=== PATIENT | male | born 1945 | race Caucasian/White ===

== ENCOUNTER → 2017-10-22 12:18 | Outpatient (CLI) | payer OTHER, SELFPAY ==
[2017-10-22 13:19] LABS: Hemoglobin A1C% w Est Avg Glu 7.3 % (4.0-6.0)
[2017-10-22 13:27] LABS: Blood Urea Nitrogen 22 mg/dL (9-20); Calcium 9.3 mg/dL (8.4-10.2); Carbon Dioxide 25 mmol/L (22-32); Chloride 104 mmol/L (98-107); Estimated Glomerular Filt Rate > 60.0 mL/min (>60); Glucose 90 mg/dL (80-110); HEMOLYSIS 31 (0-50); Potassium 4.2 mmol/L (3.4-5.1); Sodium 142 mmol/L (137-145)
[2017-10-22 15:52] LABS: Creatinine Urine Random 100.8 mg/dL
[2017-10-22 15:54] LABS: Microalbumi Creatinin Ratio Ur 9.9 ug/mg CR (<30)
== END ==
PROVIDERS: PCP Family Medicine; Visit Provider Family Medicine
DX: E11.9 Type 2 diabetes mellitus without complications (principal)
CPT/HCPCS: 36415; 80048; 82043; 82570; 83036

== ENCOUNTER → 2018-02-28 13:34 | Outpatient (CLI) | payer OTHER, SELFPAY ==
[2018-02-28 14:06] LABS: Hemoglobin A1C% w Est Avg Glu 7.2 % (4.0-6.0)
[2018-02-28 14:22] LABS: Alanine Aminotransferase 44 IU/L (21-72); Albumin 4.1 g/dL (3.5-5.0); Albumin Globulin Ratio 1.6 (1.0-2.8); Alkaline Phosphatase 50 U/L (38-126); Aspartate Aminotransferase 30 IU/L (17-59); BUN Creatinine Ratio 18.3 (6-22); Bilirubin Total 0.6 mg/dL (0.2-1.3); Blood Urea Nitrogen 22 mg/dL (9-20); Calcium 9.2 mg/dL (8.4-10.2); Carbon Dioxide 24 mmol/L (22-32); Chloride 104 mmol/L (98-107); Estimated Glomerular Filt Rate 59.2 mL/min (>60); Globulin 2.6 g/dL (1.7-4.1); Glucose 161 mg/dL (80-110); HEMOLYSIS < 15 (0-50); Potassium 4.5 mmol/L (3.4-5.1); Sodium 141 mmol/L (137-145); Total Protein 6.7 g/dL (6.3-8.2)
== END ==
PROVIDERS: PCP Family Medicine; Visit Provider Family Medicine
DX: E11.9 Type 2 diabetes mellitus without complications (principal); Z79.4 Long term (current) use of insulin; I10 Essential (primary) hypertension
CPT/HCPCS: 36415; 80053; 83036

== ENCOUNTER → 2018-07-31 08:05 | Outpatient (CLI) | payer OTHER, SELFPAY ==
--- NOTE | 2018-07-31 | DI.US.S_ITS ---
PROCEDURE: US CAROTID DOPPLER BI INDICATIONS: OPTIC ATROPHY TECHNIQUE: Color and pulse Doppler interrogation was performed of both carotid systems, with image documentation and velocity measurements. COMPARISON: None. FINDINGS: Stenosis calculations are based on SRU (Society of Radiologists in Ultrasound) criteria. Right side: Brachial blood pressure: 148/82 mm Hg. Common carotid artery peak systolic velocity: 106 cm/sec. Internal carotid artery peak systolic velocity: 46 cm/sec. Internal carotid artery end diastolic velocity: 8 cm/sec. External carotid artery peak systolic velocity: 99 cm/sec. ICA/CCA peak systolic ratio: 0.43. Rosenberg scale imaging description: Scattered mild calcified plaque in the proximal internal carotid artery Percent internal carotid artery stenosis: Less than 50% Vertebral artery: Flow direction is antegrade. Left side: Brachial blood pressure: 142/82 mm Hg. Common carotid artery peak systolic velocity: 125 cm/sec. Internal carotid artery peak systolic velocity: 57 cm/sec. Internal carotid artery end diastolic velocity: 19 cm/sec. External carotid artery peak systolic velocity: 94 cm/sec. ICA/CCA peak systolic ratio: 0.46. Rosenberg scale imaging description: Mild calcified plaque in the internal carotid Percent internal carotid artery stenosis: Less than 50%. Vertebral artery: Flow direction is antegrade. IMPRESSION: Less than 50% stenosis in both proximal internal carotid arteries. Dictated by: John Hernandez M.D. on 07/31/2018 at 8:53 Approved by: John Hernandez M.D. on 07/31/2018 at 9:01
== END ==
PROVIDERS: PCP Family Medicine; Visit Provider Ophthalmology
DX: H47.20 Unspecified optic atrophy (principal); I65.23 Occlusion and stenosis of bilateral carotid arteries
CPT/HCPCS: 93880

== ENCOUNTER 2018-10-18 13:47 | Emergency (ER) | payer OTHER, SELFPAY ==
[2018-10-18 13:54] VITALS: BP 147/81; PULSE 70; RESP 14; TEMP 36.6; O2SAT 97; BMI 35.6
--- NOTE | 2018-10-18 14:28 | DI.US.S_ITS ---
PROCEDURE: US SCROTUM INDICATIONS: RIGHT SCROTAL MASS; PAIN TECHNIQUE: Real-time scanning was performed of the scrotum and testicles, with image documentation. Color and pulse Doppler interrogation was performed of both testicles. COMPARISON: None. FINDINGS: Right: Testicle is normal in size at 3.7 x 2.1 x 2.9 cm, and homogenous in echotexture. Epididymis is prominent in size measuring 12 mm and demonstrates prominent vascularity. No hydrocele or varicoceles. Overlying scrotal skin is normal in thickness. Left: Testicle is normal in size at 4.2 x 1.8 x 3.0 cm, and homogeneous in echotexture. Epididymis is normal in overall size and morphology. No hydrocele or varicoceles. Overlying scrotal skin is normal in thickness. Doppler: Color and pulse Doppler demonstrate normal and symmetric arterial flow in both testicles. IMPRESSION: Right epididymitis. Dictated by: Rolanda Barrera M.D. on 10/18/2018 at 14:47 Approved by: Rolanda Barrera M.D. on 10/18/2018 at 14:48
--- NOTE | 2018-10-18 14:33 | ED.MALEGU ---
HPI - Male Genitourinary <Windy Del AngelJÚNIOR - Last Filed: 10/18/18 21:26> General Chief complaint: Urogenital-Male Stated complaint: enlarged and painful right testicle Time Seen by Provider: 10/18/18 14:01 Source: patient Mode of arrival: ambulatory Limitations: no limitations History of Present Illness HPI Narrative: 73-year-old male with a history of diabetes, presents emergency department today complaining of right testicle pain, redness, and swelling for the past 2 days, also states that he feels a mass. States that in 1966 he had a piece of sharp metal penetrated his penis and required surgical removal. Patient denies fevers, chills, dysuria, abdominal pain, nausea, vomiting, change in bowel or bladder movements, denies penile discharge, chest pain, or shortness of breath. Denies any new sex partners, states he has been with his for 50 years. MD Complaint: testicle pain and testicle swelling Onset (ago): hour(s) Duration: constant Location: right testicle Radiation: right testicle Severity: moderate Severity scale (1-10): 3 Quality: aching Relieving factors: rest Exacerbating factors: movement Reports swelling and mass Related Data Sexually active: Yes Home Medications Medication Instructions Recorded Confirmed aspirin 81 mg PO QDAY #0 01/23/17 02/14/18 Previous Rx's Medication Instructions Recorded Glucose: Home Monitor ea NA Q DAY #1 01/28/17 insulin glargine (U- 100) 100 40 unit SUBCUT QAM #10 ml 09/18/17 unit/mL subcutaneous solution enalapril maleate 20 mg tablet 20 mg PO QDAY #90 tab 10/28/17 insulin glargine (U- 100) 100 See Rx Instructions SUBCUT DAILY 10/28/17 unit/mL subcutaneous solution #40 ml glimepiride 4 mg tablet 4 mg PO BID #180 tab 12/11/17 nystatin 100,000 unit/gram topical 1 applictn TOP BID #15 gram 02/14/18 cream Test Strips - Freestyle str #200 03/06/18 clindamycin HCl 150 mg capsule 150 mg PO TID #21 cap 03/07/18 clindamycin HCl 300 mg capsule 300 mg PO TID #21 cap 03/07/18 blood sugar diagnostic strips #100 each 04/28/18 Syringes: 1cc Insulin Syringes syr SQ QAM #90 06/06/18 with Doss simvastatin 40 mg tablet 40 mg PO HS #30 tab 06/09/18 Lancets 0netouch 33g #100 each 06/25/18 mupirocin 2 % topical ointment 1 applictn TOP TID #30 gram 07/15/18 amlodipine 5 mg tablet 5 mg PO DAILY #90 tab 09/01/18 levofloxacin 500 mg PO DAILY 10 Days #10 tab 10/18/18 Allergies Allergy/AdvReac Type Severity Reaction Status Date / Time hops [HOPS] Allergy Mild gi upset Verified 10/18/18 13:59 grapes Allergy Mild gi upset Uncoded 03/04/18 13:42 Review of Systems <JÚNIOR Santana - Last Filed: 10/18/18 21:26> Review of Systems 0REVIEW OF SYSTEMS: GENERAL: Denies fever or chills. HENT: No head trauma, hearing loss or sore throat. EYES: No loss of vision, double vision, eye pain, or irritation. CARDIOVASCULAR: No chest pain or syncope. RESPIRATORY: Denies shortness of breath. GASTROINTESTINAL: Denies abdominal pain or nausea. GENITOURINARY: Complains of right testicle pain and swollen testicle, see HPI. MUSCULOSKELETAL: No pain, weakness, or deformities. INTEGUMENTARY: No rash, lesions, or pruritus. NEURO: No numbness, tingling, memory loss, or confusion. PSYCH: No behavior or mood changes. PFSH <JÚNIOR Santana - Last Filed: 10/18/18 21:26> Medical History Diabetes mellitus (Chronic) Sleep apnea (Chronic) Tinnitus (Chronic) Colon polyps (Resolved) Measles (Resolved) Mumps (Resolved) Surgical History Anesthesia (Resolved) Status post colonoscopy (Resolved) Social History marital status: household members: spouse pets and animals: Yes education level: college leisure activities: reading seatbelt use: always helmet use: Yes water heater temp set < 120 deg: Yes working smoke detector in home: Yes fire extinguisher in home: Yes carbon monox detector in home: Yes firearms in home: No Smoking Status: Former smoker alcohol intake: current during the past year weight has: remained stable well-balanced diet: daily or most days daily servings fruits/ve-4 caffeine: Yes eating out: 1-3 times/week Type(s) of exercise: walking and bicycling frequency: 3-4 times per week duration: 30-45 minutes/day Social History marital status: household members: spouse pets and animals: Yes education level: college leisure activities: reading seatbelt use: always helmet use: Yes water heater temp set < 120 deg: Yes working smoke detector in home: Yes fire extinguisher in home: Yes carbon monox detector in home: Yes firearms in home: No Smoking Status: Former smoker alcohol intake: current during the past year weight has: remained stable well-balanced diet: daily or most days daily servings fruits/ve-4 caffeine: Yes eating out: 1-3 times/week Type(s) of exercise: walking and bicycling frequency: 3-4 times per week duration: 30-45 minutes/day Exam <JÚNIOR Santana - Last Filed: 10/18/18 21:26> Initial Vital Signs Initial Vital Signs: Vital Signs Temperature 97.8 F 10/18/18 13:54 Pulse Rate 70 10/18/18 13:54 Respiratory Rate 14 10/18/18 13:54 Blood Pressure 147/81 H 10/18/18 13:54 Pulse Oximetry 97 10/18/18 13:54 PHYSICAL EXAMINATION: GENERAL: Well groomed, alert, and cooperative Answers questions promptly and appropriately. Vital signs noted. HENT: Normocephalic, atraumatic. EYES: Conjunctiva pink, sclera white, no periorbital swelling. CARDIOVASCULAR: S1 and S2 sounds normal. Regular rate and rhythm, no murmurs, clicks, or bruits. No pedal edema. RESPIRATORY: Normal respiratory rate, trachea midline, airway patent. No stridor, nasal flaring or accessory muscle use. Lungs are clear in all mireles without wheeze, rhonchi, or crackles. GASTROINTESTINAL: Bowel sounds normoactive. Abdomen is soft and non-tender. No organomegaly. GENITALURINARY: Penis circumcised, no discharge. Right testicle is slightly erythematous and an increased tenderness when compared to the left testicle. Right epididymis was slightly increased in size from the left. MUSCULOSKELETAL:Equal tone and mass bilaterally. EXTREMITIES: Moves all extremities. SKIN: Warm, dry, soft, appropriate color for ethnicity. NEURO: Alert and Oriented X 3. Good coordination. No ataxia, or sensory deficits, or cognitive issues. PSYCH: Appropriate affect and mood. <Kary Suh DO - Last Filed: 10/19/18 21:32> Initial Vital Signs Initial Vital Signs: Vital Signs Temperature 97.8 F 10/18/18 13:54 Pulse Rate 70 10/18/18 13:54 Respiratory Rate 14 10/18/18 13:54 Blood Pressure 147/81 H 10/18/18 13:54 Pulse Oximetry 97 10/18/18 13:54 Course <JÚNIOR Santana - Last Filed: 10/18/18 21:26> Orders Ordered: ED Orders 10/18/18 14:28 US scrotum Stat 10/18/18 14:30 Urine Chlamydia Gonorrhea PCR Stat 10/18/18 14:45 B Type Natriuretic Peptide Stat Complete Blood Count AUTO DIFF Stat Comprehensive Metabolic Panel Stat Consultations Consultation #1: Patient staffed with Dr. Suh Vital Signs - 8 hr 10/18/18 13:54 10/18/18 16:28 Temperature 97.8 F Pulse Rate 70 71 Respiratory Rate 14 15 Blood Pressure 147/81 H Blood Pressure [Right Arm] 144/79 H Pulse Oximetry 97 100 <DO Kan Wade Last Filed: 10/19/18 21:32> Orders Ordered: ED Orders 10/18/18 14:28 US scrotum Stat 10/18/18 14:30 Urine Chlamydia Gonorrhea PCR Stat 10/18/18 14:45 B Type Natriuretic Peptide Stat Complete Blood Count AUTO DIFF Stat Comprehensive Metabolic Panel Stat Vital Signs - 8 hr 10/18/18 13:54 10/18/18 16:28 Temperature 97.8 F Pulse Rate 70 71 Respiratory Rate 14 15 Blood Pressure 147/81 H Blood Pressure [Right Arm] 144/79 H Pulse Oximetry 97 100 MDM - Male Genitourinary <JÚNIOR Santana - Last Filed: 10/18/18 21:26> Medical Records Attestation: I reviewed the patient's medical records. Lab Data Attestation: I reviewed the patient's lab results. Result diagrams: 10/18/18 14:45 10/18/18 14:45 Lab Results 10/18/18 10/18/18 10/18/18 Range/Units 14:30 14:45 14:45 WBC 10.3 (4.5-11.0) X10^3/uL RBC 5.43 (4.5-5.9) X10^6/uL Hgb 15.6 (13.5-17.5) g/dL Hct 46.3 (41-53) % MCV 85.3 (80-100) fL MCH 28.7 (26-34) PG MCHC 33.6 (30-36) % RDW 13.7 (11.6-14.8) % Plt Count 249 (150-400) X10^3/uL Neut % (Auto) 69.4 (50-75) % Lymph % (Auto) 18.5 L (25-40) % Aurora % (Auto) 10.0 (3-14) % Eos % (Auto) 1.6 L (2-4) % Baso % (Auto) 0.5 (0-2) % Neut # (Auto) 7200 H (3988-2296) /uL Lymph # (Auto) 1900 (3927-0213) /uL Aurora # (Auto) 1000 H (0-900) /uL Eos # (Auto) 200 (0-450) /uL Baso # (Auto) 100 (0-100) /uL Sodium 139 (137-145) mmol/L Potassium 4.2 (3.4-5.1) mmol/L Chloride 103 (98-107) mmol/L Carbon Dioxide 28 (22-32) mmol/L BUN 21 H (9-20) mg/dL Creatinine 0.90 (0.66-1.25) mg/dL Estimated GFR > 60.0 (>60) mL/min BUN/Creatinine Ratio 23.3 H (6-22) Glucose 162 H (80-110) mg/dL Calcium 9.3 (8.4-10.2) mg/dL Total Bilirubin 0.6 (0.2-1.3) mg/dL AST 28 (17-59) IU/L ALT 33 (21-72) IU/L Alkaline Phosphatase 61 (38-126) U/L B-Natriuretic Peptide < 100 (<100) Total Protein 7.4 (6.3-8.2) g/dL Albumin 4.1 (3.5-5.0) g/dL Globulin 3.3 (1.7-4.1) g/dL Albumin/Globulin Ratio 1.2 (1.0-2.8) Ur Chlamydia DNA (PCR) Not detected N gonorrhoeae DNA (PCR) Not detected Urine Dip Bedside Urine Glucose Negative Bedside Urine Bilirubin - Negative Bedside Urine Ketone - Negative Urine Specific [place] 1.015 Bedside Urine Occult Blood - Negative Bedside Urine pH 5.5 Bedside Urine Protein - Negative Bedside Urine Urobilinogen - Negative Bedside Urine Nitrite - Negative Bedside Urine Leukocytes - Negative Esterase Imaging Data Scrotum US: Radiologist's impression: [address] [address] Ultrasound Report Signed Patient: Alisha Tillman [facility]#: [id number] : 4Acct:[id number] Age/Sex: 73 / MDate of Service: 10/18/18 Loc: ED Accession Number: [id number] Procedure: US scrotum Ordering Provider: Windy Del Angel PROCEDURE: US SCROTUM INDICATIONS: RIGHT SCROTAL MASS; PAIN TECHNIQUE: Real-time scanning was performed of the scrotum and testicles, with image documentation. Color and pulse Doppler interrogation was performed of both testicles. COMPARISON: None. FINDINGS: Right: Testicle is normal in size at 3.7 x 2.1 x 2.9 cm, and homogenous in echotexture. Epididymis is prominent in size measuring 12 mm and demonstrates prominent vascularity. No hydrocele or varicoceles. Overlying scrotal skin is normal in thickness. Left: Testicle is normal in size at 4.2 x 1.8 x 3.0 cm, and homogeneous in echotexture. Epididymis is normal in overall size and morphology. No hydrocele or varicoceles. Overlying scrotal skin is normal in thickness. Doppler: Color and pulse Doppler demonstrate normal and symmetric arterial flow in both testicles. IMPRESSION: Right epididymitis. Dictated by: Rolanda Barrera M.D. on 10/18/2018 at 14:47 Approved by: Rolanda Barrera M.D. on 10/18/2018 at 14:48 MDM Narrative Medical decision making narrative: I suspect his symptoms are caused by epididymitis, most likely bacterial in nature (swelling and redness on exam, sudden onset, appearance of epididymitis on ultrasound, history of diabetes and which makes him more susceptible to infection). Low suspicion for Maritza's gangrene (lack of systemic symptoms, lack of blackening tissue, slow spread of illness over 1-2 days) or torsion (lack of intense pain, normal visualization by ultrasound), or STIs as patient states he has been with his for the past 50 years and only his . Strict return precautions discussed and follow-up instructions given to patient. <Kary Suh, - Last Filed: 10/19/18 21:32> Lab Data Lab Results 10/18/18 10/18/18 10/18/18 Range/Units 14:30 14:45 14:45 WBC 10.3 (4.5-11.0) X10^3/uL RBC 5.43 (4.5-5.9) X10^6/uL Hgb 15.6 (13.5-17.5) g/dL Hct 46.3 (41-53) % MCV 85.3 (80-100) fL MCH 28.7 (26-34) PG MCHC 33.6 (30-36) % RDW 13.7 (11.6-14.8) % Plt Count 249 (150-400) X10^3/uL Neut % (Auto) 69.4 (50-75) % Lymph % (Auto) 18.5 L (25-40) % Aurora % (Auto) 10.0 (3-14) % Eos % (Auto) 1.6 L (2-4) % Baso % (Auto) 0.5 (0-2) % Neut # (Auto) 7200 H (7098-5693) /uL Lymph # (Auto) 1900 (4629-8299) /uL Aurora # (Auto) 1000 H (0-900) /uL Eos # (Auto) 200 (0-450) /uL Baso # (Auto) 100 (0-100) /uL Sodium 139 (137-145) mmol/L Potassium 4.2 (3.4-5.1) mmol/L Chloride 103 (98-107) mmol/L Carbon Dioxide 28 (22-32) mmol/L BUN 21 H (9-20) mg/dL Creatinine 0.90 (0.66-1.25) mg/dL Estimated GFR > 60.0 (>60) mL/min BUN/Creatinine Ratio 23.3 H (6-22) Glucose 162 H (80-110) mg/dL Calcium 9.3 (8.4-10.2) mg/dL Total Bilirubin 0.6 (0.2-1.3) mg/dL AST 28 (17-59) IU/L ALT 33 (21-72) IU/L Alkaline Phosphatase 61 (38-126) U/L B-Natriuretic Peptide < 100 (<100) Total Protein 7.4 (6.3-8.2) g/dL Albumin 4.1 (3.5-5.0) g/dL Globulin 3.3 (1.7-4.1) g/dL Albumin/Globulin Ratio 1.2 (1.0-2.8) Ur Chlamydia DNA (PCR) Not detected N gonorrhoeae DNA (PCR) Not detected Urine Dip Bedside Urine Glucose Negative Bedside Urine Bilirubin - Negative Bedside Urine Ketone - Negative Urine Specific [place] 1.015 Bedside Urine Occult Blood - Negative Bedside Urine pH 5.5 Bedside Urine Protein - Negative Bedside Urine Urobilinogen - Negative Bedside Urine Nitrite - Negative Bedside Urine Leukocytes - Negative Esterase Discharge Plan Departure Patient Disposition: Home Clinical Impression: Epididymitis Discharge Date/Time: 10/18/18 16:31 Interventions: ED Discharge Assessment Last Done: 10/18/18 16:31 Instructions: DI for Epididymitis Activity Restrictions/Additional Instructions: Thank you for entrusting me with your care today. As discussed, it is likely that your symptoms are caused by epididymitis. I prescribed you antibiotics you should start to feel better in 24-48 hours. Please follow up with her primary care provider in the next week. Return emergency department if he develops fever, chills, uncontrolled vomiting, increasing severe abdominal pain, increased testicular swelling, increased redness or inability urinate. Prescriptions: New levofloxacin 500 mg tablet 500 mg PO DAILY 10 Days Qty: 10 RF: 0 No Action aspirin 81 MG tablet,chewable 81 mg PO QDAY Qty: 0 RF: 0 Glucose: Home Monitor NA Q DAY Qty: 1 RF: 0 insulin glargine [Lantus U-100 Insulin] 100 unit/mL solution 40 unit SUBCUT QAM Qty: 10 RF: 1 enalapril maleate 20 mg tablet 20 mg PO QDAY Qty: 90 RF: 3 insulin glargine [Lantus U-100 Insulin] 100 unit/mL solution See Rx Instructions SUBCUT DAILY Qty: 40 RF: 3 glimepiride [Amaryl] 4 mg tablet 4 mg PO BID Qty: 180 RF: 0 Test Strips - Freestyle Qty: 200 RF: 0 clindamycin HCl 300 mg capsule 300 mg PO TID Qty: 21 RF: 0 clindamycin HCl 150 mg capsule 150 mg PO TID Qty: 21 RF: 0 blood sugar diagnostic [OneTouch Ultra Blue Test Strip] strip .ROUTE .MEDSUPPLY Qty: 100 RF: 12 Syringes: 1cc Insulin Syringes with Doss SQ QAM Qty: 90 RF: 3 simvastatin 40 mg tablet 40 mg PO HS Qty: 30 RF: 1 Lancets 0netouch 33g .Route .MEDSUPPLY Qty: 100 RF: 3 mupirocin 2 % ointment 1 applictn TOP TID Qty: 30 RF: 0 amlodipine 5 mg tablet 5 mg PO DAILY Qty: 90 RF: 2 nystatin 100,000 unit/gram cream 1 applictn TOP BID Qty: 15 RF: 2 Referrals: Allie Mckeon MD [Primary Care Provider] - <Kary Suh DO - Last Filed: 10/19/18 21:32> Cosign ED Attending Cosignature Attestation: I was immediately available in the department for consultation. Documentation has been reviewed. I agree with assessment and plan.
[2018-10-18 14:56] LABS: Add Manual Diff / Slide Review NO; Basophils Absolute Auto 100 /uL (0-100); Basophils Percent Auto 0.5 % (0-2); Eosinophils Absolute Auto 200 /uL (0-450); Eosinophils Percent Auto 1.6 % (2-4); Hematocrit 46.3 % (41-53); Hemoglobin 15.6 g/dL (13.5-17.5); Lymphocytes Absolute Auto 1900 /uL (1100-4500); Lymphocytes Percent Auto 18.5 % (25-40); Mean Corpuscular HGB Conc 33.6 % (30-36); Mean Corpuscular Hemoglobin 28.7 PG (26-34); Mean Corpuscular Volume 85.3 fL (80-100); Monocytes Absolute Auto 1000 /uL (0-900); Neutrophils Absolute Auto 7200 /uL (1500-7000); Neutrophils Percent Auto 69.4 % (50-75); Platelet Count 249 X10^3/uL (150-400); Red Blood Cell Count 5.43 X10^6/uL (4.5-5.9); Red Cell Distribution Width 13.7 % (11.6-14.8); White Blood Cell Count 10.3 X10^3/uL (4.5-11.0)
[2018-10-18 15:07] LABS: Alanine Aminotransferase 33 IU/L (21-72); Albumin 4.1 g/dL (3.5-5.0); Albumin Globulin Ratio 1.2 (1.0-2.8); Alkaline Phosphatase 61 U/L (38-126); Aspartate Aminotransferase 28 IU/L (17-59); BUN Creatinine Ratio 23.3 (6-22); Bilirubin Total 0.6 mg/dL (0.2-1.3); Blood Urea Nitrogen 21 mg/dL (9-20); Calcium 9.3 mg/dL (8.4-10.2); Carbon Dioxide 28 mmol/L (22-32); Chloride 103 mmol/L (98-107); Estimated Glomerular Filt Rate > 60.0 mL/min (>60); Globulin 3.3 g/dL (1.7-4.1); Glucose 162 mg/dL (80-110); HEMOLYSIS 28 (0-50); Potassium 4.2 mmol/L (3.4-5.1); Sodium 139 mmol/L (137-145); Total Protein 7.4 g/dL (6.3-8.2)
[2018-10-18 15:38] LABS: B Type Natriuretic Peptide < 100 (<100)
[2018-10-18 16:18] LABS: Urine N gonorrhoeae NOT DETECTED
[2018-10-18 16:28] VITALS: BP 144/79; PULSE 71; RESP 15; O2SAT 100
[2018-10-18 16:48] LABS: Urine Chlamydia NOT DETECTED
== END 2018-10-18 16:31 | disposition home or self-care (01) ==
PROVIDERS: Emergency Provider Nurse Practitioner; PCP Family Medicine
DX: N45.1 Epididymitis (principal)
CPT/HCPCS: 36415; 76870; 80053; 81003; 83880; 85025; 87491; 87591; 99282; 99284

== ENCOUNTER → 2018-10-20 17:37 | Outpatient (ROUT) | payer OTHER, SELFPAY ==
[2018-10-20 17:54] LABS: Hemoglobin A1C% w Est Avg Glu 8.2 % (4.0-6.0)
== END ==
PROVIDERS: PCP Family Medicine; Visit Provider Family Medicine
DX: E11.9 Type 2 diabetes mellitus without complications (principal); Z79.4 Long term (current) use of insulin
CPT/HCPCS: 83036

== ENCOUNTER → 2019-02-10 06:58 | Outpatient (CLI) | payer OTHER, SELFPAY ==
[2019-02-10 09:00] LABS: Alanine Aminotransferase 37 IU/L (21-72); Albumin 4.7 g/dL (3.5-5.0); Albumin Globulin Ratio 1.3 (1.0-2.8); Alkaline Phosphatase 57 U/L (38-126); Aspartate Aminotransferase 35 IU/L (17-59); BUN Creatinine Ratio 17.5 (6-22); Bilirubin Total 0.7 mg/dL (0.2-1.3); Blood Urea Nitrogen 21 mg/dL (9-20); Calcium 9.3 mg/dL (8.4-10.2); Carbon Dioxide 30 mmol/L (22-32); Chloride 101 mmol/L (98-107); Cholesterol 144 mg/dL (140-199); Globulin 3.5 g/dL (1.7-4.1); Glucose 53 mg/dL (80-110); HDL Cholesterol 38 mg/dL (40-60); HEMOLYSIS < 15 (0-50); LDL Cholesterol Calculated 75 mg/dL (<100); Potassium 3.8 mmol/L (3.4-5.1); Sodium 142 mmol/L (137-145); Total Protein 8.2 g/dL (6.3-8.2); Triglycerides 157 mg/dL (35-150)
[2019-02-10 10:41] LABS: Creatinine Urine Random 57.9 mg/dL
[2019-02-10 10:46] LABS: Microalbumi Creatinin Ratio Ur 13.8 ug/mg CR (<30); Microalbumin Urine Random 0.8 mg/dL (0-1.6)
== END ==
PROVIDERS: PCP Family Medicine; Visit Provider Family Medicine
DX: E78.2 Mixed hyperlipidemia (principal); E11.65 Type 2 diabetes mellitus with hyperglycemia; Z79.4 Long term (current) use of insulin
CPT/HCPCS: 36415; 80053; 80061; 82043; 82570

== ENCOUNTER 2019-02-11 09:00 | Outpatient (RCR) | payer OTHER, SELFPAY ==
--- NOTE | 2019-01-16 15:59 | PT.OIE ---
Current Diagnoses Synovitis and tenosynovitis, unspecified (01/16/19) Past Medical History (Last Reviewed 11/14/18 @ 13:10 by Olegario Lucas MD) Colon polyps (Resolved) Diabetes mellitus (Chronic) Measles (Resolved) Mumps (Resolved) Sleep apnea (Chronic) Tinnitus (Chronic) Past Surgical History (Last Reviewed 11/14/18 @ 13:10 by Olegario Lucas MD) Anesthesia (Resolved) Status post colonoscopy (Resolved) Visit Care Team Role Provider Type Allie Mckeon MD Primary Care Provider Physician Specialty: [facility] Address: [address] [place] [address], [id number] Email: [email or web address] Olegario Lucas MD Attending Provider Physician Specialty: [facility] Address: [address] [place] [address], [facility] Email: Physical Therapy Initial Evaluation PT-OP-A Visit Information Start: 01/15/19 16:00 Freq: Status: Active Protocol: Document 01/16/19 13:39 LRN (Rec: 01/16/19 15:08 LRN [id number]) Out-Patient Physical Therapy Visit Information Visit Information Visit Type Initial Evaluation Visit Start Time 13:39 Visit Stop Time 14:30 Total Visit Minutes 51 Visit Number 1 Number of RN APPEALS Visits 0 Evaluation Information Evaluation Date 01/16/19 Precautions Precautions Diabetes type 2 PT-OP-B Current Condition Start: 01/15/19 16:00 Freq: Status: Active Protocol: Document 01/16/19 13:39 LRN (Rec: 01/16/19 15:08 LRN [id number]) Current Condition History of Current Condition Onset Date 1 yr Current Complaints Burning in L hand and rikki hand stiffness. History of Current Condition Insidious onset of bilateral hand stiffness and burning pain, that according to Dr Gardner has Dupytren's syndrome that is not too far advanced. Was told he could do surgery if needed to straighten the fingers in the future (L hand 3rd and 4th digits, and R hand 2nd digit). He notes after gripping a steering wheel for a long time the hand will make a pop with pain when straightening out the fingers. Prior Treatments and Tests Pt was seen at [facility] by Dr Gardner . Future Testing and Treatments Planned Not at this time. Treatment Goals Patient/Caregiver Goals Pt goal is to not have fingers be stiff and sore (stinging and burning eliminated). Improve multigraph operator and ability to hold small things (pills). Prior Functional Status Baseline Function- ADL's Independent Baseline Function- Mobility Independent Current Functional Impairments (Reported) Functional Limitations- ADL's Driving - Difficulty maintaining a multigraph operator on steering wheel due to burning pain in palm of hands. Functional Limitations- Other Ability to grasp, gripping steering wheel while driving, or holding small objects Personal Factors Other Personal Factors That May Effect Type 2 Diabetes Therapy/Recovery PT-OP-C Subjective Start: 01/15/19 16:00 Freq: Status: Active Protocol: Document 01/16/19 13:39 LRN (Rec: 01/16/19 15:08 LRN [id number]) Patient Questionnaires Upper Extremity Functional Scale UEFS Score 20 Upper Extremity Functional Scale 60 to 79% Impaired (Score 17- Impairment 31) PT-OP-F Manual Assessment Start: 01/15/19 16:00 Freq: Status: Active Protocol: Document 01/16/19 13:39 LRN (Rec: 01/16/19 15:08 LRN [id number]) Manual Assessments Soft Tissue Assessment Soft Tissue Mobility Assessment Areas of soft tissue restriction in the palmar surface of the hands bilaterally along tendons of the R hand index finger, and L hand tendons of the index, middle and ring fingers. PT-OP-J Posture/Palpation/Skin Start: 01/15/19 16:00 Freq: Status: Active Protocol: Document 01/16/19 13:39 LRN (Rec: 01/16/19 15:08 LRN [id number]) Posture Evaluation Comments Posture Comments R hand appears mildly atrophied compared to the L hand. PT-OP-K Range of Motion Start: 01/15/19 16:00 Freq: Status: Active Protocol: Document 01/16/19 13:39 LRN (Rec: 01/16/19 15:55 LRN [id number]) Elbow/Forearm Range of Motion Elbow/Forearm Right Active ROM Testing Position Sitting, Elbow 90 deg's flexed . Supination (degrees) 20 Left Active ROM Testing Position Sitting, Elbow 90 deg's flexed . Supination (degrees) 25 Wrist Goniometric Range of Motion Wrist Right Wrist ROM WFL No Flexion Active (degrees) 52 Extension Active (degrees) 47 Ulnar Deviation Active (degrees) 40 Radial Deviation Active (degrees) 23 Left Wrist ROM WFL No Flexion Active (degrees) 52 Extension Active (degrees) 54 Ulnar Deviation Active (degrees) 35 Radial Deviation Active (degrees) 15 Finger Goniometric Range of Motion Finger ROM Limitations Finger ROM Limitations Soft Tissue Tightness, Contracture Comments MCP L Extension/Flexion R Extension/flex Index: lacks lacks Middle: lacks lacks Ring: lacks lacks PIP Index: lacks WNL/ Middle: lacks WN/ Ring: lacks WNL/ PT-OP-M Strength Start: 01/15/19 16:00 Freq: Status: Active Protocol: Document 01/16/19 13:39 LRN (Rec: 01/16/19 15:55 LRN [id number]) Hand Icu Specialist/Pinch Strength Hand Dominance Hand Dominance Right Hand Strength Right Comments Icu Specialist (kgs), 3 trials: Right Hand: 24, 24, 22 Left Comments Icu Specialist (kgs), 3 trials: Left Hand: 26, 24, 24 PT-OP-Q Treatments Start: 01/15/19 16:00 Freq: Status: Active Protocol: Document 01/16/19 13:39 LRN (Rec: 01/16/19 15:08 LRN [id number]) Self-Care/Home Management Treatment Education Patient Education Home Exercise Program Activities Self-Care/Home Management Activities Pt shown and instructed in DTM of hands at nodules for HEP. PT-OP-T Assessment and Plan Start: 01/15/19 16:00 Freq: Status: Active Protocol: Document 01/16/19 13:39 LRN (Rec: 01/16/19 15:08 LRN [id number]) Physical Therapy Assessment Rehab Potential Rehabilitation Potential Good Evaluation Complexity Number of Personal Factors/Comorbidities 1-2 Number of Body Systems Impaired 3 Clinical Presentation at Evaluation Stable Impairments Impairments Pain,ROM,Strength Other Concerns Barriers to Rehabilitation Type 2 Diabetes. Goals Three Impairment Occasional onset of burning pain in the palms of the hands Short Term Goal (STG) Pt will be able to multigraph operator objects and open the hand without pain using methods ( STM) to prevent onset of pain when straightening out his fingers. STG Duration 02/13/19 Auto Repair Technician Goal (LTG) Pt will no longer have burning pain in the palms following gripping/holding activities. LTG Duration 03/13/19 Two Impairment Stiff of the hands bilaterally making gripping difficult. Short Term Goal (STG) Pt will be able to hold small pill type objects without them falling. STG Duration 02/13/19 Auto Repair Technician Goal (LTG) Pt will be able to improve his R multigraph operator strength by 5-10 kgs per handheld dynomometer. LTG Duration 03/13/19 One Impairment Pt lacks self care HEP for the hands. Jail Goal (LTG) Pt will be independent with self [facility] exercises to maintain and progress hand/ wrist mobility and strength. LTG Duration 03/13/19 Assessment Summary Assessment Pt presents with mechanical dysfunction of the hands bilaterally with Dupuytren's Contracture signs and symptoms of the R hand index finger & L hand index (mild), middle and ring finger. Pt also demonstrates decreased bilateral wrist and finger mobility for flex/ext/ supination and decreased R multigraph operator strength. The pt will benefit from skilled physical therapy to improve finger mobility and multigraph operator strength and decrease pain and restriction in the hands bilaterally. Physical Therapy Plan Frequency and Duration Frequency of Treatment 2x/Week Plan of Care Start Date 01/16/19 Plan of Care End Date 03/13/19 Therapeutic Interventions Therapeutic Interventions Home Exercise Program,Manual Therapy,Patient/Caregiver Education,Self-Care/Home Management,Soft Tissue Mobilization,Taping, Therapeutic Exercises Modalities Hot Packs,Infrared Therapy, Paraffin Bath,Ultrasound Next Visit Focus/Plan Next Note Type Treatment Note Next Visit Plan Ultrasound nodules f/b DTM and finger tendon glides and ROM. Start and issue HEP for wrists bilaterally. Progress with use of Paraffin Bath, K- taping, ROM ex's, HEP. Issue HEP for wrist stretching.
--- NOTE | 2019-01-16 16:00 | PT.OPPOC ---
Current Diagnoses Synovitis and tenosynovitis, unspecified (01/16/19) Visit Care Team Role Provider Type Allie Mckeon MD Primary Care Provider Physician Specialty: [facility] Address: [address] [place] [address], [facility], [place], [address] Email: [email or web address] Olegario Lucas MD Attending Provider Physician Specialty: [facility] Address: [address] [place] [address], [id number] Email: Plan Of Care PT-OP-T Assessment and Plan Start: 01/15/19 16:00 Freq: Status: Active Protocol: Document 01/16/19 13:39 LRN (Rec: 01/16/19 15:08 LRN [id number]) Physical Therapy Assessment Rehab Potential Rehabilitation Potential Good Evaluation Complexity Number of Personal Factors/Comorbidities 1-2 Number of Body Systems Impaired 3 Clinical Presentation at Evaluation Stable Impairments Impairments Pain,ROM,Strength Other Concerns Barriers to Rehabilitation Type 2 Diabetes. Goals Three Impairment Occasional onset of burning pain in the palms of the hands Short Term Goal (STG) Pt will be able to ordnance equipment worker objects and open the hand without pain using methods ( STM) to prevent onset of pain when straightening out his fingers. STG Duration 02/13/19 Intermediate Goal (LTG) Pt will no longer have burning pain in the palms following gripping/holding activities. LTG Duration 03/13/19 Two Impairment Stiff of the hands bilaterally making gripping difficult. Short Term Goal (STG) Pt will be able to hold small pill type objects without them falling. STG Duration 02/13/19 Managing Member Goal (LTG) Pt will be able to improve his R ordnance equipment worker strength by 5-10 kgs per handheld dynomometer. LTG Duration 03/13/19 One Impairment Pt lacks self care HEP for the hands. Intermediate Goal (LTG) Pt will be independent with self fci exercises to maintain and progress hand/ wrist mobility and strength. LTG Duration 03/13/19 Assessment Summary Assessment Pt presents with mechanical dysfunction of the hands bilaterally with Dupuytren's Contracture signs and symptoms of the R hand index finger & L hand index (mild), middle and ring finger. Pt also demonstrates decreased bilateral wrist and finger mobility for flex/ext/ supination and decreased R ordnance equipment worker strength. The pt will benefit from skilled physical therapy to improve finger mobility and ordnance equipment worker strength and decrease pain and restriction in the hands bilaterally. Physical Therapy Plan Frequency and Duration Frequency of Treatment 2x/Week Plan of Care Start Date 01/16/19 Plan of Care End Date 03/13/19 Therapeutic Interventions Therapeutic Interventions Home Exercise Program,Manual Therapy,Patient/Caregiver Education,Self-Care/Home Management,Soft Tissue Mobilization,Taping, Therapeutic Exercises Modalities Hot Packs,Infrared Therapy, Paraffin Bath,Ultrasound Next Visit Focus/Plan Next Note Type Treatment Note Next Visit Plan Ultrasound nodules f/b DTM and finger tendon glides and ROM. Start and issue HEP for wrists bilaterally. Progress with use of Paraffin Bath, K- taping, ROM ex's, HEP. Issue HEP for wrist stretching. Plan of Care Dates Plan of Care Start Date 01/16/19 Plan of Care End Date 03/13/19
--- NOTE | 2019-01-20 14:38 | PT.OTN ---
Current Diagnoses Synovitis and tenosynovitis, unspecified (01/20/19) Physical Therapy Treatment Note PT-OP-A Visit Information Start: 01/15/19 16:00 Freq: Status: Active Protocol: Document 01/20/19 13:35 LRN (Rec: 01/20/19 14:36 LRN [id number]) Out-Patient Physical Therapy Visit Information Visit Information Visit Type Treatment Note Visit Start Time 13:35 Visit Stop Time 14:15 Total Visit Minutes 40 Visit Number 2 Number of TRANSIT PROOF MACHINE OPERATOR Visits 0 Evaluation Information Evaluation Date 01/16/19 Precautions Precautions Diabetes type 2 PT-OP-B Current Condition Start: 01/15/19 16:00 Freq: Status: Active Protocol: Document 01/16/19 13:39 LRN (Rec: 01/16/19 15:08 LRN [id number]) Current Condition History of Current Condition Onset Date 1 yr Current Complaints Burning in L hand and rikki hand stiffness. History of Current Condition Insidious onset of bilateral hand stiffness and burning pain, that according to Dr Gardner has Dupytren's syndrome that is not too far advanced. Was told he could do surgery if needed to straighten the fingers in the future (L hand 3rd and 4th digits, and R hand 2nd digit). He notes after gripping a steering wheel for a long time the hand will make a pop with pain when straightening out the fingers. Prior Treatments and Tests Pt was seen at [facility] by Dr Gardner . Future Testing and Treatments Planned Not at this time. Treatment Goals Patient/Caregiver Goals Pt goal is to not have fingers be stiff and sore (stinging and burning eliminated). 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 Prior Functional Status Baseline Function- ADL's Independent Baseline Function- Mobility Independent Current Functional Impairments (Reported) Functional Limitations- ADL's Driving - Difficulty maintaining a mechatronics engineer on steering wheel due to burning pain in palm of hands. Functional Limitations- Other Ability to grasp, gripping steering wheel while driving, or holding small objects Personal Factors Other Personal Factors That May Effect Type 2 Diabetes Therapy/Recovery PT-OP-C Subjective Start: 01/15/19 16:00 Freq: Status: Active Protocol: Document 01/20/19 13:35 LRN (Rec: 01/20/19 14:36 LRN [id number]) OP-PT Subjective Patient Comments Patient Comments No change. PT-OP-F Manual Assessment Start: 01/15/19 16:00 Freq: Status: Active Protocol: Document 01/16/19 13:39 LRN (Rec: 01/16/19 15:08 LRN [id number]) Manual Assessments Soft Tissue Assessment Soft Tissue Mobility Assessment Areas of soft tissue restriction in the palmar surface of the hands bilaterally along tendons of the R hand index finger, and L hand tendons of the index, middle and ring fingers. PT-OP-J Posture/Palpation/Skin Start: 01/15/19 16:00 Freq: Status: Active Protocol: Document 01/16/19 13:39 LRN (Rec: 01/16/19 15:08 LRN [id number]) Posture Evaluation Comments Posture Comments R hand appears mildly atrophied compared to the L hand. PT-OP-K Range of Motion Start: 01/15/19 16:00 Freq: Status: Active Protocol: Document 01/16/19 13:39 LRN (Rec: 01/16/19 15:55 LRN [id number]) Elbow/Forearm Range of Motion Elbow/Forearm Right Active ROM Testing Position Sitting, Elbow 90 deg's flexed . Supination (degrees) 20 Left Active ROM Testing Position Sitting, Elbow 90 deg's flexed . Supination (degrees) 25 Wrist Goniometric Range of Motion Wrist Right Wrist ROM WFL No Flexion Active (degrees) 52 Extension Active (degrees) 47 Ulnar Deviation Active (degrees) 40 Radial Deviation Active (degrees) 23 Left Wrist ROM WFL No Flexion Active (degrees) 52 Extension Active (degrees) 54 Ulnar Deviation Active (degrees) 35 Radial Deviation Active (degrees) 15 Finger Goniometric Range of Motion Finger ROM Limitations Finger ROM Limitations Soft Tissue Tightness, Contracture Comments MCP L Extension/Flexion R Extension/flex Index: lacks lacks Middle: lacks lacks Ring: lacks lacks PIP Index: lacks WNL/80 Middle: lacks WNL/ Ring: lacks WNL/ PT-OP-M Strength Start: 01/15/19 16:00 Freq: Status: Active Protocol: Document 01/16/19 13:39 LRN (Rec: 01/16/19 15:55 LRN [id number]) Hand Hand Cloth Examiner/Pinch Strength Hand Dominance Hand Dominance Right Hand Strength Right Comments Hand Cloth Examiner (kgs), 3 trials: Right Hand: 24, 24, 22 Left Comments Hand Cloth Examiner (kgs), 3 trials: Left Hand: 26, 24, 24 PT-OP-Q Treatments Start: 01/15/19 16:00 Freq: Status: Active Protocol: Document 01/20/19 13:35 LRN (Rec: 01/20/19 14:36 LRN [id number]) Therapeutic Exercises Sitting Exercises Finger extension Sitting Exercise Name Finger extension: Active; & with rubberband ARROM Side bilateral Reps/Minutes 10' Manual Therapy Treatment Soft Tissue Mobilization R hand Body Location R asencio surface Mobilization Type Cross-Friction,Rolling, Strumming Intensity/Depth Moderate Body Position Sitting Comments Area of the 2nd & 3rd digit tendons. L hand Body Location L palmar surface Mobilization Type Cross-Friction,Rolling, Strumming,Sustained Pressure Intensity/Depth Moderate Body Position Sitting Comments Area of the 3rd & 4th digit tendons PT-OP-R Modalities Start: 01/15/19 16:00 Freq: Status: Active Protocol: Document 01/20/19 13:35 LRN (Rec: 01/20/19 14:36 [facility] [id number]) Ultrasound Therapy Treatment R hand asencio surface Treatment Duration (minutes) 8 Patient Position Sitting Coupling Medium Ultrasound Gel Applicator Size (cm2) 2 Frequency Setting (mHz) 3 Mode Setting Pulsed Duty Cycle 50% Intensity Setting (w/cm2) 1.5 Comments Tendons of 2nd & 3rd digits. L hand asencio surface digits 4th, 5th Treatment Duration (minutes) 8 Patient Position Sitting Applicator Size (cm2) 2 Frequency Setting (mHz) 3 Mode Setting Pulsed Duty Cycle 50% Intensity Setting (w/cm2) 1.5 Comments Tendons of 4th & 5th digits. PT-OP-T Assessment and Plan Start: 01/15/19 16:00 Freq: Status: Active Protocol: Document 01/20/19 13:35 LRN (Rec: 01/20/19 14:36 [facility] [id number]) Physical Therapy Assessment Assessment Summary Assessment Pt was able to achieve good finger extension after US & stretching. Physical Therapy Plan Frequency and Duration Frequency of Treatment 2x/Week Plan of Care Start Date 01/16/19 Plan of Care End Date 03/13/19 Next Visit Focus/Plan Next Note Type Treatment Note Next Visit Plan Assess response to Ultrasound nodules. Might try Paraffin Dip to start f/b DTM and finger tendon glides and ROM. Start and issue HEP for wrists bilaterally. Progress with use of K-taping, ROM ex's , HEP. Issue HEP for wrist stretching.
--- NOTE | 2019-01-27 16:27 | PT.OTN ---
Current Diagnoses Synovitis and tenosynovitis, unspecified (01/27/19) Physical Therapy Treatment Note PT-OP-A Visit Information Start: 01/15/19 16:00 Freq: Status: Active Protocol: Document 01/27/19 13:39 LRN (Rec: 01/27/19 14:27 LRN [id number]) Out-Patient Physical Therapy Visit Information Visit Information Visit Type Treatment Note Visit Start Time 13:37 Visit Stop Time 14:16 Total Visit Minutes 39 Visit Number 3 Number of SELF CONTAINED BEHAVIOR UNIT TEACHER Visits 0 Evaluation Information Evaluation Date 01/16/19 Precautions Precautions Diabetes type 2 PT-OP-B Current Condition Start: 01/15/19 16:00 Freq: Status: Active Protocol: Document 01/16/19 13:39 LRN (Rec: 01/16/19 15:08 LRN [id number]) Current Condition History of Current Condition Onset Date 1 yr Current Complaints Burning in L hand and rikki hand stiffness. History of Current Condition Insidious onset of bilateral hand stiffness and burning pain, that according to Dr Gardner has Dupytren's syndrome that is not too far advanced. Was told he could do surgery if needed to straighten the fingers in the future (L hand 3rd and 4th digits, and R hand 2nd digit). He notes after gripping a steering wheel for a long time the hand will make a pop with pain when straightening out the fingers. Prior Treatments and Tests Pt was seen at [facility] by Dr Gardner . Future Testing and Treatments Planned Not at this time. Treatment Goals Patient/Caregiver Goals Pt goal is to not have fingers be stiff and sore (stinging and burning eliminated). Improve engineering recruiter and ability to hold small things (pills). Prior Functional Status Baseline Function- ADL's Independent Baseline Function- Mobility Independent Current Functional Impairments (Reported) Functional Limitations- ADL's Driving - Difficulty maintaining a engineering recruiter on steering wheel due to burning pain in palm of hands. Functional Limitations- Other Ability to grasp, gripping steering wheel while driving, or holding small objects Personal Factors Other Personal Factors That May Effect Type 2 Diabetes Therapy/Recovery PT-OP-C Subjective Start: 01/15/19 16:00 Freq: Status: Active Protocol: Document 01/27/19 13:38 LRN (Rec: 01/27/19 14:27 LRN [id number]) OP-PT Subjective Patient Comments Patient Comments Has been using the hands a lot . PT-OP-F Manual Assessment Start: 01/15/19 16:00 Freq: Status: Active Protocol: Document 01/16/19 13:39 LRN (Rec: 01/16/19 15:08 LRN [id number]) Manual Assessments Soft Tissue Assessment Soft Tissue Mobility Assessment Areas of soft tissue restriction in the palmar surface of the hands bilaterally along tendons of the R hand index finger, and L hand tendons of the index, middle and ring fingers. PT-OP-J Posture/Palpation/Skin Start: 01/15/19 16:00 Freq: Status: Active Protocol: Document 01/16/19 13:39 LRN (Rec: 01/16/19 15:08 LRN [id number]) Posture Evaluation Comments Posture Comments R hand appears mildly atrophied compared to the L hand. PT-OP-K Range of Motion Start: 01/15/19 16:00 Freq: Status: Active Protocol: Document 01/16/19 13:39 LRN (Rec: 01/16/19 15:55 LRN [id number]) Elbow/Forearm Range of Motion Elbow/Forearm Right Active ROM Testing Position Sitting, Elbow 90 deg's flexed . Supination (degrees) 20 Left Active ROM Testing Position Sitting, Elbow 90 deg's flexed . Supination (degrees) 25 Wrist Goniometric Range of Motion Wrist Right Wrist ROM WFL No Flexion Active (degrees) 52 Extension Active (degrees) 47 Ulnar Deviation Active (degrees) 40 Radial Deviation Active (degrees) 23 Left Wrist ROM WFL No Flexion Active (degrees) 52 Extension Active (degrees) 54 Ulnar Deviation Active (degrees) 35 Radial Deviation Active (degrees) 15 Finger Goniometric Range of Motion Finger ROM Limitations Finger ROM Limitations Soft Tissue Tightness, Contracture Comments MCP L Extension/Flexion R Extension/flex Index: lacks lacks Middle: lacks lacks Ring: lacks lacks PIP Index: lacks WNL/80 Middle: lacks WNL/ Ring: lacks WNL/ PT-OP-M Strength Start: 01/15/19 16:00 Freq: Status: Active Protocol: Document 01/16/19 13:39 LRN (Rec: 01/16/19 15:55 LRN [id number]) Hand Cloud Engagement Partner/Pinch Strength Hand Dominance Hand Dominance Right Hand Strength Right Comments Cloud Engagement Partner (kgs), 3 trials: Right Hand: 24, 24, 22 Left Comments Cloud Engagement Partner (kgs), 3 trials: Left Hand: 26, 24, 24 PT-OP-Q Treatments Start: 01/15/19 16:00 Freq: Status: Active Protocol: Document 01/27/19 13:38 LRN (Rec: 01/27/19 14:27 LRN [id number]) Therapeutic Exercises Sitting Exercises Finger extension Sitting Exercise Name Finger extension: Active, Active Assisted Ext & with rubberband ARROM Side bilateral Comments Active and ARROM (with band) done while opposite hand STM performed Manual Therapy Treatment Soft Tissue Mobilization R hand Body Location R asencio surface Mobilization Type Cross-Friction,Rolling, Strumming Intensity/Depth Moderate Body Position Sitting Comments Area of the 2nd digit tendons. L hand Body Location L palmar surface Mobilization Type Cross-Friction,Rolling, Strumming,Sustained Pressure Intensity/Depth Moderate Body Position Sitting Comments Area of the 3rd & 4th, 5th digit tendons PT-OP-R Modalities Start: 01/15/19 16:00 Freq: Status: Active Protocol: Document 01/27/19 13:38 LRN (Rec: 01/27/19 14:27 LR [id number]) Paraffin Bath Treatment Right Hand Treatment Technique Dip-immersion Number Wax Layers (layers) 8 Duration (minutes) 5 Patient Tolerance Good Left Hand Treatment Technique Dip-immersion Number Wax Layers (layers) 8 Duration (minutes) 5 Patient Tolerance Good PT-OP-T Assessment and Plan Start: 01/15/19 16:00 Freq: Status: Active Protocol: Document 01/27/19 13:38 LRN (Rec: 01/27/19 14:27 [facility] [id number]) Physical Therapy Assessment Goals Three Impairment Occasional onset of burning pain in the palms of the hands Short Term Goal (STG) Pt will be able to engineering recruiter objects and open the hand without pain using methods ( STM) to prevent onset of pain when straightening out his fingers. STG Duration 02/13/19 Enforcement Officer Goal (LTG) Pt will no longer have burning pain in the palms following gripping/holding activities. LTG Duration 03/13/19 Two Impairment Stiff of the hands bilaterally making gripping difficult. Short Term Goal (STG) Pt will be able to hold small pill type objects without them falling. STG Duration 02/13/19 Enforcement Officer Goal (LTG) Pt will be able to improve his R engineering recruiter strength by 5-10 kgs per handheld dynomometer. LTG Duration 03/13/19 One Impairment Pt lacks self care HEP for the hands. Mcc Goal (LTG) Pt will be independent with self usp exercises to maintain and progress hand/ wrist mobility and strength. LTG Duration 03/13/19 Assessment Summary Assessment Pt able to lay the R hand flat with mild tightness of the index finger tendon. Laying the L had flat elicited stretch in the L hand's 3rd & 4th digit tendons. No significant change in finger/ hand mobility with US at hand nodules. Physical Therapy Plan Frequency and Duration Frequency of Treatment 2x/Week Plan of Care Start Date 01/16/19 Plan of Care End Date 03/13/19 Next Visit Focus/Plan Next Visit Plan Cont Paraffin Dip to start f/b DTM and finger tendon glides and ROM. Try K-tape for finger flexor tendons. Start and issue HEP for wrists bilaterally. Progress with use of K-taping, ROM ex's, HEP . Issue HEP for wrist stretching, and start fine motor relearning for picking up small pill type objects.
--- NOTE | 2019-01-29 13:45 | PT-OP ANOTE ---
Per telephone conversation the pt reports forgot his appointment.
--- NOTE | 2019-02-02 15:49 | PT.OTN ---
Current Diagnoses Synovitis and tenosynovitis, unspecified (02/02/19) Physical Therapy Treatment Note PT-OP-A Visit Information Start: 01/15/19 16:00 Freq: Status: Active Protocol: Document 02/02/19 13:36 LRN (Rec: 02/02/19 14:44 LRN [id number]) Out-Patient Physical Therapy Visit Information Visit Information Visit Type Treatment Note Visit Start Time 13:36 Visit Stop Time 14:25 Total Visit Minutes 49 Visit Number 4 Number of RESEARCH WORKER KITCHEN Visits 0 Evaluation Information Evaluation Date 01/16/19 Precautions Precautions Diabetes type 2 PT-OP-B Current Condition Start: 01/15/19 16:00 Freq: Status: Active Protocol: Document 01/16/19 13:39 LRN (Rec: 01/16/19 15:08 LRN [id number]) Current Condition History of Current Condition Onset Date 1 yr Current Complaints Burning in L hand and rikki hand stiffness. History of Current Condition Insidious onset of bilateral hand stiffness and burning pain, that according to Dr Gardner has Dupytren's syndrome that is not too far advanced. Was told he could do surgery if needed to straighten the fingers in the future (L hand 3rd and 4th digits, and R hand 2nd digit). He notes after gripping a steering wheel for a long time the hand will make a pop with pain when straightening out the fingers. Prior Treatments and Tests Pt was seen at [facility] by Dr Gardner . Future Testing and Treatments Planned Not at this time. Treatment Goals Patient/Caregiver Goals Pt goal is to not have fingers be stiff and sore (stinging and burning eliminated). Improve life specialist and ability to hold small things (pills). Prior Functional Status Baseline Function- ADL's Independent Baseline Function- Mobility Independent Current Functional Impairments (Reported) Functional Limitations- ADL's Driving - Difficulty maintaining a life specialist on steering wheel due to burning pain in palm of hands. Functional Limitations- Other Ability to grasp, gripping steering wheel while driving, or holding small objects Personal Factors Other Personal Factors That May Effect Type 2 Diabetes Therapy/Recovery PT-OP-C Subjective Start: 01/15/19 16:00 Freq: Status: Active Protocol: Document 02/02/19 13:36 LRN (Rec: 02/02/19 14:44 LRN [id number]) OP-PT Subjective Patient Comments Patient Comments Less popping in the hand. Tension felt with finger ext: R hand index finger and L hand Ring and middle finger. PT-OP-F Manual Assessment Start: 01/15/19 16:00 Freq: Status: Active Protocol: Document 02/02/19 13:36 LRN (Rec: 02/02/19 14:44 LRN [id number]) Manual Assessments Soft Tissue Assessment Soft Tissue Mobility Assessment Soft tissue binding at MCP joints of L fingers 2-4 and R index finger. PT-OP-J Posture/Palpation/Skin Start: 01/15/19 16:00 Freq: Status: Active Protocol: Document 01/16/19 13:39 LRN (Rec: 01/16/19 15:08 LRN [id number]) Posture Evaluation Comments Posture Comments R hand appears mildly atrophied compared to the L hand. PT-OP-K Range of Motion Start: 01/15/19 16:00 Freq: Status: Active Protocol: Document 01/16/19 13:39 LRN (Rec: 01/16/19 15:55 LRN [id number]) Elbow/Forearm Range of Motion Elbow/Forearm Right Active ROM Testing Position Sitting, Elbow 90 deg's flexed . Supination (degrees) 20 Left Active ROM Testing Position Sitting, Elbow 90 deg's flexed . Supination (degrees) 25 Wrist Goniometric Range of Motion Wrist Right Wrist ROM WFL No Flexion Active (degrees) 52 Extension Active (degrees) 47 Ulnar Deviation Active (degrees) 40 Radial Deviation Active (degrees) 23 Left Wrist ROM WFL No Flexion Active (degrees) 52 Extension Active (degrees) 54 Ulnar Deviation Active (degrees) 35 Radial Deviation Active (degrees) 15 Finger Goniometric Range of Motion Finger ROM Limitations Finger ROM Limitations Soft Tissue Tightness, Contracture Comments MCP L Extension/Flexion R Extension/flex Index: lacks lacks Middle: lacks lacks Ring: lacks lacks PIP Index: lacks WNL/80 Middle: lacks WNL/ Ring: lacks WNL/ PT-OP-M Strength Start: 01/15/19 16:00 Freq: Status: Active Protocol: Document 01/16/19 13:39 LRN (Rec: 01/16/19 15:55 LRN [id number]) Hand Chef & Owner/Pinch Strength Hand Dominance Hand Dominance Right Hand Strength Right Comments Chef & Owner (kgs), 3 trials: Right Hand: 24, 24, 22 Left Comments Chef & Owner (kgs), 3 trials: Left Hand: 26, 24, 24 PT-OP-Q Treatments Start: 01/15/19 16:00 Freq: Status: Active Protocol: Document 02/02/19 13:36 LRN (Rec: 02/02/19 14:44 LRN [id number]) Therapeutic Exercises Sitting Exercises Finger tendon glides Sitting Exercise Name Curl > table top > Curl > straight Side bilateral Reps/Minutes 3' each side Stretch of palm of hands Sitting Exercise Name Manual stretch to palm of hand Side bilateral Wrist ext Sitting Exercise Name Wrist Ext Side bilateral Reps/Minutes 3' Wrist flex Sitting Exercise Name Wrist Flex Side bilateral Reps/Minutes 3' Finger extension Sitting Exercise Name Finger extension: Active, Active Assisted Ext & with rubberband ARROM Side bilateral Comments Active and ARROM (with band) done while opposite hand STM performed Manual Therapy Treatment Soft Tissue Mobilization R hand Body Location R asencio surface Mobilization Type Cross-Friction,Rolling, Strumming Intensity/Depth Moderate Body Position Sitting Comments Area of the 2nd digit tendons. L hand Body Location L palmar surface Mobilization Type Cross-Friction,Rolling, Strumming,Sustained Pressure Intensity/Depth Moderate Body Position Sitting Comments Area of the 3rd & 4th digit tendons. Taping Scar mob Body Location Palm of hands: L Digits 3,4 & R hand digit 2. Treatment Focus Scar mob Type of Tape K-tape Skin Inspection Good Comments 2-1/3 width I-strips in zig zag pattern for scar mob. PT-OP-R Modalities Start: 01/15/19 16:00 Freq: Status: Active Protocol: Document 02/02/19 13:36 LRN (Rec: 02/02/19 14:44 LRN [id number]) Paraffin Bath Treatment Right Hand Treatment Technique Dip-immersion Number Wax Layers (layers) 8 Duration (minutes) 5 Patient Tolerance Good Left Hand Treatment Technique Dip-immersion Number Wax Layers (layers) 8 Duration (minutes) 5 Patient Tolerance Good PT-OP-T Assessment and Plan Start: 01/15/19 16:00 Freq: Status: Active Protocol: Document 02/02/19 13:36 LRN (Rec: 02/02/19 14:44 LRN [id number]) Physical Therapy Assessment Goals Three Impairment Occasional onset of burning pain in the palms of the hands Short Term Goal (STG) Pt will be able to life specialist objects and open the hand without pain using methods ( STM) to prevent onset of pain when straightening out his fingers. STG Duration 02/13/19 (02/02/19: Tightness with opening of hand, no pain ) Jail Goal (LTG) Pt will no longer have burning pain in the palms following gripping/holding activities. LTG Duration 03/13/19 Two Impairment Stiff of the hands bilaterally making gripping difficult. Short Term Goal (STG) Pt will be able to hold small pill type objects without them falling. STG Duration 02/13/19 Antichecking Iron Worker Goal (LTG) Pt will be able to improve his R life specialist strength by 5-10 kgs per handheld dynomometer. LTG Duration 03/13/19 One Impairment Pt lacks self care HEP for the hands. Antichecking Iron Worker Goal (LTG) Pt will be independent with self jail exercises to maintain and progress hand/ wrist mobility and strength. LTG Duration 03/13/19 Progress Towards Goals Progress Comments STG #3: Progressing. No pain with straightening of fingers , only tightness. Assessment Summary Assessment Finger mobility (extension) improving in hands with no painful restrictions, only tightness. Pt is ready to begin life specialist strengthening and and fine motor skill training to slate picker small objects. Physical Therapy Plan Frequency and Duration Frequency of Treatment 2x/Week Plan of Care Start Date 01/16/19 Plan of Care End Date 03/13/19 Next Visit Focus/Plan Next Note Type Treatment Note Next Visit Plan Check response to K-tape. Start w/Paraffin dip to one hand at a time, while working life specialist strength and fine motor skills (picking up small objects) with undipped hand. Cont Scar mob and K-tape if helpful. Issue HEP for wrists bilaterally. Progress ROM ex' s & HEP for wrist stretching.
--- NOTE | 2019-02-09 09:47 | PT.OTN ---
Current Diagnoses Synovitis and tenosynovitis, unspecified (02/09/19) Physical Therapy Treatment Note PT-OP-A Visit Information Start: 01/15/19 16:00 Freq: Status: Active Protocol: Document 02/09/19 09:47 SP (Rec: 02/09/19 13:11 SP [id number]) Out-Patient Physical Therapy Visit Information Visit Information Visit Type Treatment Note Visit Start Time 09:02 Visit Stop Time 09:47 Total Visit Minutes 45 Visit Number 5 Number of NAVAL GUNFIRE LIAISON OFFICER Visits 1 PT-OP-B Current Condition Start: 01/15/19 16:00 Freq: Status: Active Protocol: Document 01/16/19 13:39 LRN (Rec: 01/16/19 15:08 LRN [id number]) Current Condition History of Current Condition Onset Date 1 yr Current Complaints Burning in L hand and rikki hand stiffness. History of Current Condition Insidious onset of bilateral hand stiffness and burning pain, that according to Dr Gardner has Dupytren's syndrome that is not too far advanced. Was told he could do surgery if needed to straighten the fingers in the future (L hand 3rd and 4th digits, and R hand 2nd digit). He notes after gripping a steering wheel for a long time the hand will make a pop with pain when straightening out the fingers. Prior Treatments and Tests Pt was seen at [facility] by Dr Gardner . Future Testing and Treatments Planned Not at this time. Treatment Goals Patient/Caregiver Goals Pt goal is to not have fingers be stiff and sore (stinging and burning eliminated). Improve relay adjuster and ability to hold small things (pills). Prior Functional Status Baseline Function- ADL's Independent Baseline Function- Mobility Independent Current Functional Impairments (Reported) Functional Limitations- ADL's Driving - Difficulty maintaining a relay adjuster on steering wheel due to burning pain in palm of hands. Functional Limitations- Other Ability to grasp, gripping steering wheel while driving, or holding small objects Personal Factors Other Personal Factors That May Effect Type 2 Diabetes Therapy/Recovery PT-OP-C Subjective Start: 01/15/19 16:00 Freq: Status: Active Protocol: Document 02/09/19 09:47 SP (Rec: 02/09/19 13:11 SP [id number]) OP-PT Subjective Patient Comments Patient Comments Less popping in B hands. Tension felt with finger extension: R hand index than middle finger and L hand middle and ring fingers as last tx. Pt stated gripping feels stiff today but better than has been and compliant with HEP. Pt reported K taping lasted the day but fell off after shower the next day, did seem to help with decreased tightness into finger extension, would like to reapply today. PT-OP-F Manual Assessment Start: 01/15/19 16:00 Freq: Status: Active Protocol: Document 02/02/19 13:36 LRN (Rec: 02/02/19 14:44 LRN [id number]) Manual Assessments Soft Tissue Assessment Soft Tissue Mobility Assessment Soft tissue binding at MCP joints of L fingers 2-4 and R index finger. PT-OP-J Posture/Palpation/Skin Start: 01/15/19 16:00 Freq: Status: Active Protocol: Document 01/16/19 13:39 LRN (Rec: 01/16/19 15:08 LRN [id number]) Posture Evaluation Comments Posture Comments R hand appears mildly atrophied compared to the L hand. PT-OP-K Range of Motion Start: 01/15/19 16:00 Freq: Status: Active Protocol: Document 01/16/19 13:39 LRN (Rec: 01/16/19 15:55 LRN [id number]) Elbow/Forearm Range of Motion Elbow/Forearm Right Active ROM Testing Position Sitting, Elbow 90 deg's flexed . Supination (degrees) 20 Left Active ROM Testing Position Sitting, Elbow 90 deg's flexed . Supination (degrees) 25 Wrist Goniometric Range of Motion Wrist Right Wrist ROM WFL No Flexion Active (degrees) 52 Extension Active (degrees) 47 Ulnar Deviation Active (degrees) 40 Radial Deviation Active (degrees) 23 Left Wrist ROM WFL No Flexion Active (degrees) 52 Extension Active (degrees) 54 Ulnar Deviation Active (degrees) 35 Radial Deviation Active (degrees) 15 Finger Goniometric Range of Motion Finger ROM Limitations Finger ROM Limitations Soft Tissue Tightness, Contracture Comments MCP L Extension/Flexion R Extension/flex Index: lacks lacks Middle: lacks lacks Ring: lacks lacks PIP Index: lacks WNL/80 Middle: lacks WN Ring: lacks WNL/90 PT-OP-M Strength Start: 01/15/19 16:00 Freq: Status: Active Protocol: Document 01/16/19 13:39 LRN (Rec: 01/16/19 15:55 LRN [id number]) Hand Harm Reduction Worker/Pinch Strength Hand Dominance Hand Dominance Right Hand Strength Right Comments Harm Reduction Worker (kgs), 3 trials: Right Hand: 24, 24, 22 Left Comments Harm Reduction Worker (kgs), 3 trials: Left Hand: 26, 24, 24 PT-OP-Q Treatments Start: 01/15/19 16:00 Freq: Status: Active Protocol: Document 02/09/19 09:47 SP (Rec: 02/09/19 13:11 SP [id number]) Therapeutic Exercises Sitting Exercises Finger tendon glides Sitting Exercise Name Curl > table top > Curl > straight Side bilateral Reps/Minutes 3' each side Stretch of palm of hands Sitting Exercise Name Manual stretch to palm of hand Side bilateral Finger extension Sitting Exercise Name Finger extension: Active, Active Assisted Ext & with rubberband ARROM Side bilateral Comments Active and ARROM (with band) done while opposite hand STM performed Manual Therapy Treatment Soft Tissue Mobilization R hand Body Location R asencio surface Mobilization Type Cross-Friction,Rolling, Strumming Intensity/Depth Moderate Body Position Sitting Comments Area of the 1 > 2nd digit tendons. L hand Body Location L palmar surface Mobilization Type Cross-Friction,Rolling, Strumming,Sustained Pressure Intensity/Depth Moderate Body Position Sitting Comments Area of the 3rd & 4th digit tendons. Taping Scar mob Body Location Palm of hands: L Digits 3,4 & R hand digit 1. Treatment Focus Scar mob Type of Tape K-tape Skin Inspection Good Comments 2-1/3 width I-strips in zig zag pattern for scar mob. PT-OP-R Modalities Start: 01/15/19 16:00 Freq: Status: Active Protocol: Document 02/09/19 09:47 SP (Rec: 02/09/19 13:11 SP [id number]) Paraffin Bath Treatment Right Hand Treatment Technique Dip-immersion Number Wax Layers (layers) 8 Duration (minutes) 5 Patient Tolerance Good Left Hand Treatment Technique Dip-immersion Number Wax Layers (layers) 8 Duration (minutes) 5 Patient Tolerance Good PT-OP-T Assessment and Plan Start: 01/15/19 16:00 Freq: Status: Active Protocol: Document 02/09/19 09:47 SP (Rec: 10/14/19 13:11 SP [id number]) Physical Therapy Assessment Assessment Summary Assessment Finger mobility (extension) improving in hands with no painful restrictions, only tightness. Pt is ready to begin relay adjuster strengthening and and fine motor skill training to machine pecan picker small objects. Physical Therapy Plan Frequency and Duration Frequency of Treatment 2x/Week Plan of Care Start Date 01/16/19 Plan of Care End Date 03/13/19 Next Visit Focus/Plan Next Note Type Treatment Note Next Visit Plan Check response to K-tape. Start w/Paraffin dip to one hand at a time, while working relay adjuster strength and fine motor skills (picking up small objects) with undipped hand. Cont Scar mob and K-tape if helpful. Issue HEP for wrists bilaterally. Progress ROM ex' s & HEP for wrist stretching.
--- NOTE | 2019-02-11 09:48 | PT.OTN ---
Current Diagnoses Synovitis and tenosynovitis, unspecified (02/11/19) Physical Therapy Treatment Note PT-OP-A Visit Information Start: 01/15/19 16:00 Freq: Status: Active Protocol: Document 02/11/19 09:48 SP (Rec: 02/11/19 09:53 SP [email or web address]) Out-Patient Physical Therapy Visit Information Visit Information Visit Type Treatment Note Visit Start Time 09:00 Visit Stop Time 09:48 Total Visit Minutes 48 Visit Number 6 Number of BOOM PUMP OPERATOR Visits 2 PT-OP-B Current Condition Start: 01/15/19 16:00 Freq: Status: Active Protocol: Document 01/16/19 13:39 LRN (Rec: 01/16/19 15:08 LRN [id number]) Current Condition History of Current Condition Onset Date 1 yr Current Complaints Burning in L hand and rikki hand stiffness. History of Current Condition Insidious onset of bilateral hand stiffness and burning pain, that according to Dr Gardner has Dupytren's syndrome that is not too far advanced. Was told he could do surgery if needed to straighten the fingers in the future (L hand 3rd and 4th digits, and R hand 2nd digit). He notes after gripping a steering wheel for a long time the hand will make a pop with pain when straightening out the fingers. Prior Treatments and Tests Pt was seen at [facility] by Dr Gardner . Future Testing and Treatments Planned Not at this time. Treatment Goals Patient/Caregiver Goals Pt goal is to not have fingers be stiff and sore (stinging and burning eliminated). 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 Functional Limitations- Other Ability to grasp, gripping steering wheel while driving, or holding small objects Personal Factors Other Personal Factors That May Effect Type 2 Diabetes Therapy/Recovery PT-OP-C Subjective Start: 01/15/19 16:00 Freq: Status: Active Protocol: Document 02/11/19 09:48 SP (Rec: 02/11/19 12:21 SP [email or web address]) OP-PT Subjective Patient Comments Patient Comments Pt reported still some tightness in L middle with gripping motion but feels over all therapy has been helping. The taping as stated last tx, falls off during shower the next day. Patient Reported Progress Improving PT-OP-F Manual Assessment Start: 01/15/19 16:00 Freq: Status: Active Protocol: Document 02/02/19 13:36 LRN (Rec: 02/02/19 14:44 LRN [id number]) Manual Assessments Soft Tissue Assessment Soft Tissue Mobility Assessment Soft tissue binding at MCP joints of L fingers 2-4 and R index finger. PT-OP-J Posture/Palpation/Skin Start: 01/15/19 16:00 Freq: Status: Active Protocol: Document 01/16/19 13:39 LRN (Rec: 01/16/19 15:08 LRN [id number]) Posture Evaluation Comments Posture Comments R hand appears mildly atrophied compared to the L hand. PT-OP-K Range of Motion Start: 01/15/19 16:00 Freq: Status: Active Protocol: Document 01/16/19 13:39 LRN (Rec: 01/16/19 15:55 LRN [id number]) Elbow/Forearm Range of Motion Elbow/Forearm Right Active ROM Testing Position Sitting, Elbow 90 deg's flexed . Supination (degrees) 20 Left Active ROM Testing Position Sitting, Elbow 90 deg's flexed . Supination (degrees) 25 Wrist Goniometric Range of Motion Wrist Right Wrist ROM WFL No Flexion Active (degrees) 52 Extension Active (degrees) 47 Ulnar Deviation Active (degrees) 40 Radial Deviation Active (degrees) 23 Left Wrist ROM WFL No Flexion Active (degrees) 52 Extension Active (degrees) 54 Ulnar Deviation Active (degrees) 35 Radial Deviation Active (degrees) 15 Finger Goniometric Range of Motion Finger ROM Limitations Finger ROM Limitations Soft Tissue Tightness, Contracture Comments MCP L Extension/Flexion R Extension/flex Index: lacks lacks Middle: lacks lacks Ring: lacks lacks PIP Index: lacks WNL/80 Middle: lacks WNL/ Ring: lacks WNL/ PT-OP-M Strength Start: 01/15/19 16:00 Freq: Status: Active Protocol: Document 01/16/19 13:39 LRN (Rec: 01/16/19 15:55 LRN [id number]) Hand Slip Feeder/Pinch Strength Hand Dominance Hand Dominance Right Hand Strength Right Comments Slip Feeder (kgs), 3 trials: Right Hand: 24, 24, 22 Left Comments Slip Feeder (kgs), 3 trials: Left Hand: 26, 24, 24 PT-OP-Q Treatments Start: 01/15/19 16:00 Freq: Status: Active Protocol: Document 02/11/19 09:48 SP (Rec: 02/11/19 09:53 SP [email or web address]) Therapeutic Exercises Sitting Exercises Finger flex/ext putty Side bilateral Equipment Used Level 1 Yellow Reps/Minutes 10 Comments hand out provided Finger tendon glides Sitting Exercise Name Curl > table top > Curl > straight Side bilateral Reps/Minutes 3' each side Stretch of palm of hands Sitting Exercise Name Manual stretch to palm of hand Side bilateral Finger extension Sitting Exercise Name Finger extension: Active, Active Assisted Ext & with rubberband ARROM Side bilateral Comments Active and ARROM (with band) done while opposite hand STM performed Manual Therapy Treatment Soft Tissue Mobilization R hand Body Location R asencio surface Mobilization Type Cross-Friction,Rolling, Strumming Intensity/Depth Moderate Body Position Sitting Comments Area of the 1 > 2nd digit tendons. L hand Body Location L palmar surface Mobilization Type Cross-Friction,Rolling, Strumming,Sustained Pressure Intensity/Depth Moderate Body Position Sitting Comments Area of the 3rd & 4th digit tendons. Taping Scar mob Body Location Palm of hands: L Digits 3,4 & R hand digit 1. Treatment Focus Scar mob Type of Tape K-tape Skin Inspection Good Comments 2-1/3 width I-strips in zig zag pattern for scar mob. PT-OP-R Modalities Start: 01/15/19 16:00 Freq: Status: Active Protocol: Document 02/11/19 09:48 SP (Rec: 02/11/19 09:53 SP [email or web address]) Paraffin Bath Treatment Right Hand Treatment Technique Dip-immersion Number Wax Layers (layers) 8 Duration (minutes) 5 Patient Tolerance Good Left Hand Treatment Technique Dip-immersion Number Wax Layers (layers) 8 Duration (minutes) 5 Patient Tolerance Good PT-OP-T Assessment and Plan Start: 01/15/19 16:00 Freq: Status: Active Protocol: Document 02/11/19 09:48 SP (Rec: 02/11/19 09:53 SP [email or web address]) Physical Therapy Assessment Assessment Summary Assessment Finger mobility (extension) improving in hands with no painful restrictions, only tightness. 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 Physical Therapy Plan Frequency and Duration Frequency of Treatment 2x/Week Plan of Care Start Date 01/16/19 Plan of Care End Date 03/13/19 Next Visit Focus/Plan Next Note Type Treatment Note Next Visit Plan Check response to K-tape. Start w/Paraffin dip to one hand at a time, while working plant pathologist strength and fine motor skills (picking up small objects) with undipped hand. Cont Scar mob and K-tape if helpful. Issue HEP for wrists bilaterally. Progress ROM ex' s & HEP for wrist stretching.
--- NOTE | 2019-04-24 08:45 | PT-OP ANOTE ---
Pt had called 03/02/19 with message left requesting discharge.
--- NOTE | 2019-04-24 08:50 | PT.OPDS ---
Current Diagnoses Synovitis and tenosynovitis, unspecified (02/11/19) Visit Care Team Role Provider Type Allie Mckeon MD Primary Care Provider Physician Specialty: Family Practice Address: [address] [place] [address], [place], [address] Email: [email or web address] Olegario Lucas MD Attending Provider Physician Specialty: [facility] Address: [address] [place] [address], [id number] Email: Visit Number Visit Number 6 Discharge Summary PT-OP-B Current Condition Start: 01/15/19 16:00 Freq: Status: Active Protocol: Document 01/16/19 13:39 LRN (Rec: 01/16/19 15:08 LRN [id number]) Current Condition History of Current Condition Onset Date 1 yr Current Complaints Burning in L hand and rikki hand stiffness. History of Current Condition Insidious onset of bilateral hand stiffness and burning pain, that according to Dr Gardner has Dupytren's syndrome that is not too far advanced. Was told he could do surgery if needed to straighten the fingers in the future (L hand 3rd and 4th digits, and R hand 2nd digit). He notes after gripping a steering wheel for a long time the hand will make a pop with pain when straightening out the fingers. Prior Treatments and Tests Pt was seen at [facility] by Dr Gardner . Future Testing and Treatments Planned Not at this time. Treatment Goals Patient/Caregiver Goals Pt goal is to not have fingers be stiff and sore (stinging and burning eliminated). 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 Prior Functional Status Baseline Function- ADL's Independent Baseline Function- Mobility Independent Current Functional Impairments (Reported) Functional Limitations- ADL's Driving - Difficulty maintaining a maintainer operator on steering wheel due to burning pain in palm of hands. Functional Limitations- Other Ability to grasp, gripping steering wheel while driving, or holding small objects Personal Factors Other Personal Factors That May Effect Type 2 Diabetes Therapy/Recovery PT-OP-C Subjective Start: 01/15/19 16:00 Freq: Status: Active Protocol: Document 02/11/19 09:48 SP (Rec: 02/11/19 12:21 SP [email or web address]) OP-PT Subjective Patient Comments Patient Comments Pt reported still some tightness in L middle with gripping motion but feels over all therapy has been helping. The taping as stated last tx, falls off during shower the next day. Patient Reported Progress Improving PT-OP-F Manual Assessment Start: 01/15/19 16:00 Freq: Status: Active Protocol: Document 02/02/19 13:36 LRN (Rec: 02/02/19 14:44 LRN [id number]) Manual Assessments Soft Tissue Assessment Soft Tissue Mobility Assessment Soft tissue binding at MCP joints of L fingers 2-4 and R index finger. PT-OP-J Posture/Palpation/Skin Start: 01/15/19 16:00 Freq: Status: Active Protocol: Document 01/16/19 13:39 LRN (Rec: 01/16/19 15:08 LRN [id number]) Posture Evaluation Comments Posture Comments R hand appears mildly atrophied compared to the L hand. PT-OP-K Range of Motion Start: 01/15/19 16:00 Freq: Status: Active Protocol: Document 01/16/19 13:39 LRN (Rec: 01/16/19 15:55 LRN [id number]) Elbow/Forearm Range of Motion Elbow/Forearm Right Active ROM Testing Position Sitting, Elbow 90 deg's flexed . Supination (degrees) 20 Left Active ROM Testing Position Sitting, Elbow 90 deg's flexed . Supination (degrees) 25 Wrist Goniometric Range of Motion Wrist Right Wrist ROM WFL No Flexion Active (degrees) 52 Extension Active (degrees) 47 Ulnar Deviation Active (degrees) 40 Radial Deviation Active (degrees) 23 Left Wrist ROM WFL No Flexion Active (degrees) 52 Extension Active (degrees) 54 Ulnar Deviation Active (degrees) 35 Radial Deviation Active (degrees) 15 Finger Goniometric Range of Motion Finger ROM Limitations Finger ROM Limitations Soft Tissue Tightness, Contracture Comments MCP L Extension/Flexion R Extension/flex Index: lacks lacks Middle: lacks lacks Ring: lacks lacks PIP Index: lacks WNL/80 Middle: lacks WNL Ring: lacks WNL/ PT-OP-M Strength Start: 01/15/19 16:00 Freq: Status: Active Protocol: Document 01/16/19 13:39 LRN (Rec: 01/16/19 15:55 LRN [id number]) Hand Casino Floor Person/Pinch Strength Hand Dominance Hand Dominance Right Hand Strength Right Comments Casino Floor Person (kgs), 3 trials: Right Hand: 24, 24, 22 Left Comments Casino Floor Person (kgs), 3 trials: Left Hand: 26, 24, 24 PT-OP-T Assessment and Plan Start: 01/15/19 16:00 Freq: Status: Active Protocol: Document 04/24/19 08:46 LRN (Rec: 04/24/19 08:50 LRN [id number]) Physical Therapy Assessment Goals Three Impairment Occasional onset of burning pain in the palms of the hands Short Term Goal (STG) Pt will be able to maintainer operator objects and open the hand without pain using methods ( STM) to prevent onset of pain when straightening out his fingers. STG Duration 02/13/19 (02/02/19: Tightness with opening of hand, no pain ) [facility] Goal (LTG) Pt will no longer have burning pain in the palms following gripping/holding activities. LTG Duration 03/13/19 Two Impairment Stiff of the hands bilaterally making gripping difficult. Short Term Goal (STG) Pt will be able to hold small pill type objects without them falling. STG Duration 02/13/19 Photo Machine Operator Goal (LTG) Pt will be able to improve his R maintainer operator strength by 5-10 kgs per handheld dynomometer. LTG Duration 03/13/19 One Impairment Pt lacks self care HEP for the hands. Photo Machine Operator Goal (LTG) Pt will be independent with self half-way exercises to maintain and progress hand/ wrist mobility and strength. LTG Duration 03/13/19 Assessment Summary Assessment The pt was last seen 02/11/19. At that time he was assessed to having finger mobility ( extension) improving in hands with no painful restrictions, only tightness. 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 The pt was called on 03/03/19 and pt requested discharge. Physical Therapy Plan Discharge Physical Therapy Discharge Reasons Patient Request Discharge Comments Pt was not available for final assessment. Thank you for your referral.
== END 2019-02-11 10:00 ==
LOC: PHYS 09:00
PROVIDERS: PCP Family Medicine; Visit Provider Family Medicine
DX: M65.9 Synovitis and tenosynovitis, unspecified (principal)
CPT/HCPCS: 97018; 97035; 97110; 97140; 97161; 97535

== ENCOUNTER → 2019-02-12 10:52 | Outpatient (CLI) | payer OTHER, SELFPAY ==
[2019-02-12 16:19] LABS: Hemoglobin A1C% w Est Avg Glu 6.5 % (4.0-6.0)
== END ==
PROVIDERS: PCP Family Medicine; Visit Provider Family Medicine
DX: E11.9 Type 2 diabetes mellitus without complications (principal); Z79.4 Long term (current) use of insulin
CPT/HCPCS: 36415; 83036

== ENCOUNTER → 2019-05-20 15:01 | Outpatient (CLI) | payer OTHER, SELFPAY ==
[2019-05-20 17:48] LABS: Hemoglobin A1C% w Est Avg Glu 6.2 % (4.0-6.0)
[2019-05-20 18:42] LABS: TSH w/ Reflex to FT4 2.38 uIU/mL (0.47-4.68)
== END ==
PROVIDERS: PCP Family Medicine; Visit Provider Family Medicine
DX: R53.83 Other fatigue (principal); R63.5 Abnormal weight gain; E11.9 Type 2 diabetes mellitus without complications; Z79.4 Long term (current) use of insulin
CPT/HCPCS: 36415; 83036; 84443

== ENCOUNTER → 2019-10-05 12:17 | Outpatient (CLI) | payer OTHER, SELFPAY | PROVIDERS: PCP Family Medicine; Visit Provider Family Medicine | DX: L98.9 Disorder of the skin and subcutaneous tissue, unspecified (principal) | CPT/HCPCS: 87070; 87075; 87205 ==

== ENCOUNTER → 2019-11-03 10:42 | Outpatient (CLI) | payer OTHER, SELFPAY | PROVIDERS: Family Provider Family Medicine; PCP Family Medicine; Referring Provider Family Medicine; Visit Provider Family Medicine | DX: T81.31XA Disruption of external operation (surgical) wound, not elsewhere classified, initial encounter (principal); S91.301A Unspecified open wound, right foot, initial encounter; E11.621 Type 2 diabetes mellitus with foot ulcer; Z79.4 Long term (current) use of insulin | CPT/HCPCS: 97597; 99213 ==

== ENCOUNTER → 2019-11-10 10:58 | Outpatient (CLI) | payer OTHER, SELFPAY | PROVIDERS: Family Provider Family Medicine; PCP Family Medicine; Referring Provider Family Medicine; Visit Provider Family Medicine | DX: Z48.01 Encounter for change or removal of surgical wound dressing (principal) | CPT/HCPCS: 99212; 99213 ==

== ENCOUNTER 2019-11-25 04:33 | Emergency (ER) | payer OTHER, SELFPAY ==
[2019-11-25] VITALS (11 sets, daily range): BP systolic 90–119; BP diastolic 44–59; PULSE 63–80; RESP 16–34; TEMP 36.6; O2SAT 93–95; BMI 36.0
--- NOTE | 2019-11-25 04:46 | ED.GENADULT ---
HPI - General Adult General Chief complaint: Syncope Stated complaint: Syncope Time Seen by Provider: 11/25/19 04:46 Source: patient and EMS Mode of arrival: EMS Limitations: no limitations History of Present Illness HPI narrative: 74-year-old gentleman with history of diabetes, high blood pressure and urinary urgency, just took his 1st dose of Flomax this evening, presents with a syncopal episode. Apparently got up to void at 4am, was not feeling unwell dizzy or lightheaded. Was sitting on the toilet and slumped forward with a syncopal episode. His found him slumped over and call 911. He did not fall or suffer any trauma with this episode. He was awake and able to walk from the toilet back to the bedside prior to medics arriving. The reported mild orthostasis with a blood pressure drop of 20 point systolic from sitting to standing with a reassuring blood sugar and no evidence of acute stroke. He complains of feeling slightly ?off? but has no acute pain or focal neurologic complaints. He reports that yesterday he was in his normal state of good health. Related Data Home Medications Medication Instructions Recorded Confirmed aspirin 81 mg PO QDAY #0 01/23/17 10/12/19 timolol OPHTHALMIC (EYE) 05/20/19 10/12/19 Previous Rx's Medication Instructions Recorded Glucose: Home Monitor ea NA Q DAY #1 01/28/17 ketoconazole 2 % shampoo 1 applictn TOP 2XW #120 ml 02/17/19 triamcinolone acetonide 0.1 % 1 applictn TOP BID #15 gram 02/17/19 topical cream Syringes: 1cc Insulin Syringes #100 each 02/25/19 with Anderson amlodipine 5 mg tablet 5 mg PO DAILY #90 tab 05/12/19 ciclopirox 0.77 % topical cream 1 applictn TOP BID 28 Days #30 gram 05/20/19 lancets 33 gauge See Rx Instructions .ROUTE 06/26/19 .COMPLEX #100 each blood sugar diagnostic #200 each 09/14/19 insulin glargine 100 unit/mL 5 unit SUBCUT BEDTIME #10 ml 10/05/19 subcutaneous solution mupirocin 2 % topical ointment See Rx Instructions .ROUTE 10/14/19 .COMPLEX #22 gram enalapril maleate 20 mg tablet 20 mg PO DAILY #90 tab 11/11/19 pioglitazone 30 mg tablet 30 mg PO DAILY #30 tab 11/17/19 rosuvastatin 20 mg tablet 20 mg PO DAILY #30 tab 11/17/19 Allergies Allergy/AdvReac Type Severity Reaction Status Date / Time hops [HOPS] Allergy Mild gi upset Verified 10/12/19 12:11 grapes Allergy Mild gi upset Uncoded 10/12/19 12:11 Review of Systems Review of Systems Narrative: Pertinent positive and negative findings as per HPI Remainder of review of systems is otherwise unremarkable for Constitutional: Fevers, chills, weakness ENT: No sore throat, neck pain, ear pain CV: Chest pain, palpitations, dyspnea on exertion Respiratory: Cough, wheeze, dyspnea GI: Nausea, vomiting, diarrhea, change in bowel habits, black or bloody stools : hematuria, flank pain MS: Muscle weakness, numbness, joint swelling or warmth Skin: Rashes, nonhealing lesions Neuro: Syncope, dizziness, tingling Patient History Medical History Colon polyps (Resolved) Diabetes mellitus (Chronic) Essential hypertension (01/23/17) Measles (Resolved) Mixed hyperlipidemia (Chronic) Mumps (Resolved) Sleep apnea (Chronic) Tinnitus (Chronic) Surgical History Anesthesia (Resolved) Status post colonoscopy (Resolved) Family History Grandmother Loud snoring Father Loud snoring Heart disease Mother Hypertension Anxiety Dementia Social History marital status: household members: spouse pets and animals: Yes education level: college leisure activities: reading seatbelt use: always helmet use: Yes water heater temp set < 120 deg: Yes working smoke detector in home: Yes fire extinguisher in home: Yes carbon monox detector in home: Yes firearms in home: No Smoking Status: Never smoker alcohol intake: current during the past year weight has: remained stable well-balanced diet: daily or most days daily servings fruits/ve-4 caffeine: Yes eating out: 1-3 times/week Type(s) of exercise: walking and bicycling frequency: 3-4 times per week duration: 30-45 minutes/day Smoking Status: Never smoker alcohol intake frequency: a few times a month Substance Use Type: does not use Exam Narrative Exam Narrative: General: Healthy appearing, fatigued and slightly slowed. Able to give a complete and coherent history. Well-nourished well-developed HEENT: Moist mucous membranes, normal sclera with reactive pupils, multiple broken capillaries over nose chin and cheeks Neck: No JVD, supple Respiratory: Lungs are clear to auscultation, no wheezing no rales no rhonchi. Full and symmetrical air movement Cardiac: Regular rate and rhythm, 3/6 diastolic murmur with an opening click Abdomen: Soft nontender good bowel tones, no flank pain Skin: Warm and dry, no rashes Neurologic: Grossly neurologically intact with no obvious asymmetries or abnormalities Extremities: No trauma, well perfused Psych: Cooperative, appropriate insight and affect Initial Vital Signs Initial Vital Signs: Vital Signs Pulse Rate 67 11/25/19 04:35 Blood Pressure 109/53 L 11/25/19 04:35 Pulse Oximetry 93 11/25/19 04:35 Course Orders Ordered: ED Orders 11/25/19 04:42 Complete Blood Count AUTO DIFF Stat Comprehensive Metabolic Panel Stat D Dimer Stat Troponin & CK Cardiac Panel Stat 11/25/19 04:53 EKG-12 Lead Stat 11/25/19 04:54 XR chest 1V Stat Sodium Chloride (Normal Saline 0.9%) 1,000 mls @ 150 mls/hr IV CONT VITALIY Last Admin: 11/25/19 05:51 Dose: Not Given Documented by: NICO Discontinued Medications Sodium Chloride (Normal Saline 0.9%) 1,000 mls @ 1,000 mls/hr IV BOLUS ONE Stop: 11/25/19 05:54 Last Infusion: 11/25/19 06:32 Dose: 0 mls/hr Documented by: Admin: 11/25/19 05:51 Dose: 1,000 mls/hr Documented by: NICO Vital Signs Vital signs: Vital Signs - 8 hr 11/25/19 04:35 11/25/19 04:39 11/25/19 05:00 Temperature 97.8 F Pulse Rate 67 63 67 Pulse Rate [Orthostatic Lying] Pulse Rate [Orthostatic Sitting] Pulse Rate [Orthostatic Standing] Respiratory Rate 16 34 H Blood Pressure 109/53 L 109/53 L Blood Pressure [Orthostatic Lying] Blood Pressure [Orthostatic Sitting] Blood Pressure [Orthostatic Standing] Pulse Oximetry 93 93 93 11/25/19 05:01 11/25/19 05:30 11/25/19 06:00 Temperature Pulse Rate 67 65 65 Pulse Rate [Orthostatic Lying] Pulse Rate [Orthostatic Sitting] Pulse Rate [Orthostatic Standing] Respiratory Rate 22 23 19 Blood Pressure 112/52 L 90/44 L 110/55 L Blood Pressure [Orthostatic Lying] Blood Pressure [Orthostatic Sitting] Blood Pressure [Orthostatic Standing] Pulse Oximetry 95 95 95 11/25/19 06:28 11/25/19 06:30 11/25/19 06:31 Temperature Pulse Rate 75 73 69 Pulse Rate [Orthostatic Lying] Pulse Rate [Orthostatic Sitting] Pulse Rate [Orthostatic Standing] Respiratory Rate 19 17 16 Blood Pressure 105/55 L 119/57 L 115/59 L Blood Pressure [Orthostatic Lying] Blood Pressure [Orthostatic Sitting] Blood Pressure [Orthostatic Standing] Pulse Oximetry 94 11/25/19 06:36 11/25/19 06:45 Temperature Pulse Rate 69 Pulse Rate [Orthostatic Lying] 69 Pulse Rate [Orthostatic Sitting] 68 Pulse Rate [Orthostatic Standing] 80 Respiratory Rate 23 Blood Pressure 111/56 L Blood Pressure [Orthostatic Lying] 105/55 L Blood Pressure [Orthostatic Sitting] 119/57 L Blood Pressure [Orthostatic Standing] 115/59 L Pulse Oximetry 94 Medical Decision Making Medical Records Medical records reviewed: Yes I reviewed the patient's medical records. Lab Data Lab results reviewed: Yes I reviewed the patient's lab results. Lab results narrative: D-dimer of 463 still within normal limits when corrected for age 74 Result diagrams: 11/25/19 04:42 11/25/19 04:42 Labs: Lab Results 11/25/19 11/25/19 11/25/19 Range/Units 04:42 04:42 04:42 WBC 7.6 (4.5-11.0) X10^3/uL RBC 5.16 (4.5-5.9) X10^6/uL Hgb 14.6 (13.5-17.5) g/dL Hct 44.3 (41-53) % MCV 86.0 (80-100) fL MCH 28.3 (26-34) PG MCHC 32.9 (30-36) % RDW 14.3 (11.6-14.8) % Plt Count 224 (150-400) X10^3/uL Neut % (Auto) 60.2 (50-75) % Lymph % (Auto) 25.8 (25-40) % [place] % (Auto) 11.8 (3-14) % Eos % (Auto) 1.6 L (2-4) % Baso % (Auto) 0.6 (0-2) % Neut # (Auto) 4600 (1235-5488) /uL Lymph # (Auto) 2000 (9120-9223) /uL [place] # (Auto) 900 (0-900) /uL Eos # (Auto) 100 (0-450) /uL Baso # (Auto) 0 (0-100) /uL D-Dimer 463 H (<230) ng/mL Sodium 135 L (137-145) mmol/L Potassium 4.5 (3.4-5.1) mmol/L Chloride 105 (98-107) mmol/L Carbon Dioxide 24 (22-32) mmol/L BUN 23 H (9-20) mg/dL Creatinine 1.24 (0.66-1.25) mg/dL Estimated GFR 56.8 L (>60) mL/min BUN/Creatinine Ratio 18.5 (6-22) Glucose 164 H (80-110) mg/dL Calcium 9.2 (8.4-10.2) mg/dL Total Bilirubin 0.7 (0.2-1.3) mg/dL AST 34 (17-59) IU/L ALT 28 (<50) IU/L Alkaline Phosphatase 42 (38-126) U/L Total Creatine Kinase 131 (55-170) U/L CK-MB (CK-2) 1.98 (<2.37) ng/mL CK-MB (CK-2) Rel Index 1.5 (1.5-5.0) % Troponin I < 0.012 (0.01-0.034) ng/mL Total Protein 6.8 (6.3-8.2) g/dL Albumin 3.9 (3.5-5.0) g/dL Globulin 2.9 (1.7-4.1) g/dL Albumin/Globulin Ratio 1.3 (1.0-2.8) Point of Care Testing Glucose POC 153 Point of care testing: Point of Care Testing Glucose POC 153 Imaging Data Chest x-ray: Attestation: I personally reviewed and interpreted this imaging study as follows: My Impression: Poor inspiration likely unremarkable chest x-ray no obvious infiltrates. ECG Data Attestation: I personally reviewed and interpreted this ECG as follows: Interpretation: Sinus rhythm at a rate of 63 Normal intervals, normal axis No acute STT wave changes MDM Narrative Medical decision making narrative: Labs are returning reassuringly normal. EKG and chest x-ray equally normal. Blood pressures continued to drop in is down to 90/40. I do suspect that he is particularly sensitive to the Flomax that he took this evening. Am seeing no evidence of infection nor sepsis, stroke, cardiac event or other life-threatening issues. Will re-evaluate blood pressure after L of fluid is and fused. Patient himself is feeling more awake, alert and still has no specific complaints or concerns Re-evaluation after 1 L of fluid. Blood pressure is up nicely. Patient has an ambulatory trial around the emergency department and blood pressures remained stable and he continues to feel well. At this time, the best explanation for his symptoms tonight are starting the Flomax. I am going to suggest that he not continue the Flomax He is safe for home discharge Discharge Plan Departure Patient Disposition: Home Clinical Impression: Syncope due to orthostatic hypotension Adverse drug reaction Qualifiers: Encounter type: initial encounter Qualified Code(s): T50.905A - Adverse effect of unspecified drugs, medicaments and biological substances, initial encounter Instructions: DI for Syncope in Adults (Fainting) Activity Restrictions/Additional Instructions: Thank you for coming in this evening Your workup was very reassuring. I did not find any evidence of a stroke, heart attack or significant infection. I suspect that you are particularly sensitive to the Flomax that you started last night. One of its side effects can be low blood pressure that causes you to pass out. Your blood pressure recovered nicely after a Liter of fluid Please continue all of your other medications and do not continue the Flomax/tamsulosin Please follow-up with your doctor within the next couple of days to see if there is other options that might help with the urinary urgency that will cause adverse side effects If you feel that you are getting worse, please return to the emergency department. Prescriptions: No Action ketoconazole 2 % shampoo 1 applictn TOP 2XW Qty: 120 RF: 2 triamcinolone acetonide 0.1 % cream 1 applictn TOP BID Qty: 15 RF: 2 timolol ophthalmic (eye) RF: 0 ciclopirox 0.77 % cream 1 applictn TOP BID 28 Days Qty: 30 RF: 2 Lantus U-100 Insulin 100 unit/mL solution 5 unit SUBCUT BEDTIME Qty: 10 RF: 1 aspirin 81 MG tablet,chewable 81 mg PO QDAY Qty: 0 RF: 0 Glucose: Home Monitor NA Q DAY Qty: 1 RF: 0 (DME) Syringes: 1cc Insulin Syringes with Anderson 0 .Route .MEDSUPPLY Qty: 100 RF: 3 amlodipine 5 mg tablet 5 mg PO DAILY Qty: 90 RF: 2 lancets [OneTouch Delica Lancets] 33 gauge misc See Rx Instructions .ROUTE .COMPLEX Qty: 100 RF: 3 (DME) OneTouch Ultra Blue Test Strip Strip See Dose Instructions .ROUTE .MEDSUPPLY Qty: 200 RF: 12 mupirocin 2 % ointment See Rx Instructions .ROUTE .COMPLEX Qty: 22 RF: 0 enalapril maleate 20 mg tablet 20 mg PO DAILY Qty: 90 RF: 3 pioglitazone 30 mg tablet 30 mg PO DAILY Qty: 30 RF: 11 rosuvastatin 20 mg tablet 20 mg PO DAILY Qty: 30 RF: 11 Referrals: Allie Mckeon MD [Primary Care Provider] -
--- NOTE | 2019-11-25 04:54 | DI.RAD.S_ITS ---
PROCEDURE: XR CHEST 1V INDICATIONS: syncope TECHNIQUE: One view of the chest was acquired. COMPARISON: None. FINDINGS: Surgical changes and devices: None. Lungs and pleura: Lungs are clear. No pleural effusions or pneumothorax. Mediastinum: Mediastinal contours appear normal. Heart size is normal. Bones and chest wall: No suspicious bony lesions. Overlying soft tissues appear unremarkable. IMPRESSION: No acute cardiopulmonary disease process. Dictated by: Betsy Manzo MD, PhD on 11/25/2019 at 8:01 Approved by: Betsy Manzo MD, PhD on 11/25/2019 at 8:02
[2019-11-25 05:14] LABS: Add Manual Diff / Slide Review NO; Basophils Absolute Auto 0 /uL (0-100); Basophils Percent Auto 0.6 % (0-2); Eosinophils Absolute Auto 100 /uL (0-450); Eosinophils Percent Auto 1.6 % (2-4); Hematocrit 44.3 % (41-53); Hemoglobin 14.6 g/dL (13.5-17.5); Lymphocytes Absolute Auto 2000 /uL (1100-4500); Lymphocytes Percent Auto 25.8 % (25-40); Mean Corpuscular HGB Conc 32.9 % (30-36); Mean Corpuscular Hemoglobin 28.3 PG (26-34); Monocytes Absolute Auto 900 /uL (0-900); Monocytes Percent Auto 11.8 % (3-14); Neutrophils Absolute Auto 4600 /uL (1500-7000); Neutrophils Percent Auto 60.2 % (50-75); Platelet Count 224 X10^3/uL (150-400); Red Blood Cell Count 5.16 X10^6/uL (4.5-5.9); Red Cell Distribution Width 14.3 % (11.6-14.8); White Blood Cell Count 7.6 X10^3/uL (4.5-11.0)
[2019-11-25 05:16] LABS: Alanine Aminotransferase 28 IU/L (<50); Albumin 3.9 g/dL (3.5-5.0); Albumin Globulin Ratio 1.3 (1.0-2.8); Alkaline Phosphatase 42 U/L (38-126); Aspartate Aminotransferase 34 IU/L (17-59); BUN Creatinine Ratio 18.5 (6-22); Bilirubin Total 0.7 mg/dL (0.2-1.3); Blood Urea Nitrogen 23 mg/dL (9-20); Calcium 9.2 mg/dL (8.4-10.2); Carbon Dioxide 24 mmol/L (22-32); Chloride 105 mmol/L (98-107); Creatine Kinase 131 U/L (55-170); Estimated Glomerular Filt Rate 56.8 mL/min (>60); Globulin 2.9 g/dL (1.7-4.1); Glucose 164 mg/dL (80-110); Sodium 135 mmol/L (137-145); Total Protein 6.8 g/dL (6.3-8.2)
[2019-11-25 05:18] LABS: Potassium 4.5 mmol/L (3.4-5.1)
[2019-11-25 05:27] LABS: D Dimer 463 ng/mL (<230)
[2019-11-25 05:28] LABS: Troponin I < 0.012 ng/mL (0.01-0.034)
[2019-11-25 05:32] LABS: CKMB % Relative Index 1.5 % (1.5-5.0); Creatine Kinase MB 1.98 ng/mL (<2.37)
[2019-11-25 05:39] LABS: HEMOLYSIS 72 (0-50)
[2019-11-25] MEDS: SODIUM CHLORIDE 0.9% 1,000 ML 1000 ML IV (05:51)
--- NOTE | 2019-11-25 06:48 | PC.NURSE ---
Pt ambulated with a steady gait
== END 2019-11-25 07:28 | disposition home or self-care (01) ==
PROVIDERS: Emergency Provider Emergency Medicine; Family Provider Family Medicine; PCP Family Medicine
DX: I95.1 Orthostatic hypotension (principal); T50.905A Adverse effect of unspecified drugs, medicaments and biological substances, initial encounter; E11.9 Type 2 diabetes mellitus without complications; R39.15 Urgency of urination
CPT/HCPCS: 36415; 71045; 80053; 82550; 82553; 82962; 84484; 85025; 85379; 93005; 96360; 99284

== ENCOUNTER → 2020-02-25 09:13 | Outpatient (CLI) | payer OTHER, SELFPAY ==
[2020-02-25 10:39] LABS: Cholesterol 182 mg/dL (140-199); HDL Cholesterol 34 mg/dL (40-60); LDL Cholesterol Calculated 116 mg/dL (<100); Triglycerides 161 mg/dL (35-150)
== END ==
PROVIDERS: Family Provider Family Medicine; PCP Family Medicine; Referring Provider Family Medicine; Visit Provider Family Medicine
DX: E11.9 Type 2 diabetes mellitus without complications (principal); Z79.4 Long term (current) use of insulin
CPT/HCPCS: 36415; 80061; 83036

== ENCOUNTER → 2020-02-29 13:00 | Outpatient (CLI) | payer OTHER, SELFPAY ==
--- NOTE | 2020-02-29 13:01 | DI.RAD.S_ITS ---
PROCEDURE: FL BARIUM SWALLOW INDICATIONS: pain swallowing COMPARISON: None. FINDINGS: Function: There is normal esophageal peristalsis superiorly. No elicited gastroesophageal reflux. There is mildly delayed transit of a 13 mm calibrated barium tablet through the esophagus into the stomach. Morphology: Air-contrast images demonstrate normal mucosal morphology superiorly but at the distal esophagus there is a pattern of concentric mild stenosis with nodular irregularity along the right and left margins of the distal esophagus, in the area of transient delay of transit of the barium tablet into the gastric lumen. A definite large polypoid mass is not seen but a mucosal level abnormality is suspected producing distal esophageal stenosis over approximately a 4.7 cm craniocaudad length as a result. Single contrast views show no additional esophageal strictures, extrinsic mass effects, or diverticula. Limited images of the stomach demonstrate normal appearance. IMPRESSION: Recommend endoscopic evaluation of the distal esophagus where a up 4.7 cm region of mild esophageal mucosal irregularity is present with a fixed mild stenosis that transiently produced delay in transit of a 13 mm barium tablet from the distal esophagus into the gastric lumen. The patient reports significant episodic esophageal obstructive symptoms, which she stated were progressive. Dictated by: Jose Pérez M.D. on 02/29/2020 at 14:14 Approved by: Jose Pérez M.D. on 02/29/2020 at 14:20
== END ==
PROVIDERS: Family Provider Family Medicine; PCP Family Medicine; Referring Provider Family Medicine; Visit Provider Family Medicine
DX: R13.10 Dysphagia, unspecified (principal); K22.2 Esophageal obstruction
CPT/HCPCS: 74220

== ENCOUNTER → 2020-03-05 13:49 | Outpatient (CLI) | payer OTHER, SELFPAY ==
[2020-03-07 08:00] LABS: COVID19 Sendout Not Detected (Not Detect)
== END ==
PROVIDERS: Family Provider Family Medicine; PCP Family Medicine; Visit Provider Physician Assistant
DX: Z11.59 Encounter for screening for other viral diseases (principal)
CPT/HCPCS: 87635

== ENCOUNTER 2020-03-07 09:39 | Day surgery (SDC) | payer OTHER, SELFPAY ==
[2020-03-07] VITALS (9 sets, daily range): BP systolic 119–169; BP diastolic 82–98; PULSE 84–95; RESP 14–24; TEMP 36.3–37.2; O2SAT 90–97; BMI 32.8
--- NOTE | 2020-03-07 | PATH_ITS ---
[facility] Accession Number: [id number] . 01 Material submitted: . PART A: gastrointestinal site - GASTRIC POLYP PART B: esophagus, E-G Junction - GE JUNCTION . 02 Diagnosis: A-B. 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 . Her2 BIOMARKER RESULTS: HER2 (4B5): Negative (0). . COMMENT: Testing performed on Block Number: B1. The criteria used is based on the ToGA Trial 6 for Scoring HER2 Expression by Immunohistochemistry (IHC) in Gastric and Esophagogastric Junction Adenocarcinoma. . *This test was developed and its performance characteristics determined by [facility]. It has not been cleared or approved by the U.S. Food and Drug Administration. The FDA has determined that such clearance or approval is not necessary. This test is used for clinical purposes. It should not be regarded as investigational or for research. [facility] 03/10/2020 1643 [facility] . 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 Crespo has reviewed this case and agrees with the diagnosis of poorly differentiated adenocarcinoma. The finding of adenocarcinoma was reported to Dr. Hawthorne by Dr. Arevalo on 03/09/2020. . 02 Electronically signed: . Jasmeet Arevalo MD, PhD, Pathologist NPI- [id number] . 01 Gross description: . A. Specimen A is received in formalin, labeled gastric polyp and consists of three vázquez-pink fragments of soft tissue, measuring 0.6 x 0.5 x 0.2 cm in aggregate. The specimen is entirely submitted in cassette A1. B. Specimen B is received in formalin, labeled GE junction and consists of multiple vázquez-pink fragments of soft tissue, measuring 1.2 x 1.0 x 0.2 cm in aggregate. The specimen is entirely submitted in cassette B1. ([id number]) /[facility] 03/08/2020 1545 [facility] . 02 Pathologist provided ICD-10: K22.2, C15.9 . 02 CPT . 276522, 634348, [id number] Performed at: 01 [facility] [address] [place] [address], [place], [place] [id number] MD Brian Sterling MD Phone: [phone] Performed at: 02 [facility] [address] [place], [place] [id number] MD Jodi Crespo MD Phone: [phone]
[2020-03-07] MEDS: LACTATED RINGERS 1,000 ML 200 ML IV (10:02)
--- NOTE | 2020-03-07 10:55 | PM.PREOP ---
Pre-operative Note COVID-19 COVID-19 status: Negative Interval Note History & Physical reviewed/Exam performed by Physician: Yes Changes to H&P: No ASA Class (for procedural sedation): II
[2020-03-07] MEDS: LIDOCAINE 4% SOLN 50 ML 20 ML TOP (11:05)
[2020-03-07] MEDS: fentaNYL 250 MCG/5 ML INJ IV (11:06)
[2020-03-07] MEDS: MIDAZOLAM 5 MG/5 ML VIAL IV (11:06)
--- NOTE | 2020-03-07 11:26 | PM.OP.ENDO ---
Operative Date/Time/Diagnoses Date of procedure: 03/07/20 Time of procedure: 11:26 Pre-op diagnosis: dysphagia Post-op diagnosis: same Procedure & Clinicians Study performed: Esophagoduodenoscopy Same procedure as scheduled: Yes Indications: 75-year-old man with progressive dysphagia here for EGD Surgeon: Caden Hawthorne Procedure Notes SCOAP/Timeout: Performed Procedure in detail: Patient placed in left lateral decubitus position. Time out was performed. Procedural sedation was administered with Versed and Fentanyl. A bite block was placed. the scope was inserted into the mouth and advanced through the esophagus and into the stomach. The pylorus was intubated and the duodenum was normal to the 2nd portion. Within the stomach there were multiple S sub cm polyps which were stipulated in their appearance biopsy was performed with forceps. The scope was retroflexed within the stomach and there was a small hiatal hernia. No ulcers, or gastritis. The scope was withdrawn into the esophagus the Z line was seen at 40 cm from the incisions. The GE junction was extremely ulcerated and friable. There was no discrete mass but the findings were concerning for esophageal carcinoma. Multiple biopsies of the GE junction were taken with the biopsy forceps. There was no xenia esophageal stricture and the scope passed easily from the esophagus into the stomach. Stomach was desufflated and scope removed. Patient tolerated procedure well. Sedation minutes: 14 Findings: possible cancer and other findings (Esophageal ulceration) Specimen(s): other (Gastric polyp, GE junction) Complications: none Impression: Esophageal ulceration concerning for possible cancer Post-procedure Recommendations: Will call with biopsy results Disposition: same day surgery
== END 2020-03-07 12:34 | disposition home or self-care (01) ==
PROVIDERS: Family Provider Family Medicine; PCP Family Medicine; Referring Provider Family Medicine; Visit Provider Surgery
PROC: 0DJ08ZZ Inspection of Upper Intestinal Tract, Via Natural or Artificial Opening Endoscopic (ICD-10-PCS; CPT 43235; principal; 2020-03-07 10:45)
DX: C15.9 Malignant neoplasm of esophagus, unspecified (principal); E11.9 Type 2 diabetes mellitus without complications; I10 Essential (primary) hypertension; G47.30 Sleep apnea, unspecified; E78.5 Hyperlipidemia, unspecified; K44.9 Diaphragmatic hernia without obstruction or gangrene
CPT/HCPCS: 43239; 99152; J2250; J3010

== ENCOUNTER → 2020-03-28 11:00 | Oncology outpatient (ONC) | payer OTHER, SELFPAY ==
--- NOTE | 2020-03-21 12:18 | ONC.CONS ---
History of Present Illness - Data of Consult Patient: new to practice Consult date: 03/21/20 Requesting Physician: Allie Mckeon MD Primary Care Provider: Allie Mckeon MD - Consult Narrative Reason for consult: GE junction adenocarcinoma Narrative: Alisha Tillman is a 75 year old male. He reports swallowing difficulty in mid Jan 2020. Initially solid food was mot difficult and water and liquid were not bothering at that time. But it progressed quite a bit since, and now with difficult time even with liquid. He also reports soreness of his stomach after food. He denies vomiting, but admits to weight loss of 30 lbs starting Dec 2019. In addition, he developed left axillary and left upper arm discomfort. She saw Emeka Durham on 02/23/2020. He underwent barium swallow evaluation that showed 4.7 cm region of mild esophageal mucosal irregularity. He was then referred to Dr. 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 He denies no sob, but cough once a while. He is complaining of mid back pain about one week ago. It was like a ache. At night, he gets much more intense. He had to sleep in recliner at night. He reports no diarrhea. He reports no double vision or blurred vision. He said that he feels very weak and can not walk long distance before taking a break. CC: Katherin Chisholm MD Home Medications and Allergies Home Medications Medication Instructions Recorded Confirmed Type aspirin 81 mg PO QDAY #0 01/23/17 03/07/20 History Glucose: Home Monitor ea NA Q DAY #1 01/28/17 03/02/20 Rx triamcinolone acetonide 0.1 % 1 applictn TOP BID #15 gram 02/17/19 03/02/20 Rx topical cream Syringes: 1cc Insulin Syringes #100 each 02/25/19 03/02/20 Rx with [place] amlodipine 5 mg tablet 5 mg PO DAILY #90 tab 05/12/19 03/07/20 Rx ciclopirox 0.77 % topical cream 1 applictn TOP BID 28 Days #30 gram 05/20/19 03/07/20 Rx timolol See Rx Instructions .ROUTE .COMPLEX 05/20/19 03/07/20 History lancets 33 gauge See Rx Instructions .ROUTE 06/26/19 03/02/20 Rx .COMPLEX #100 each blood sugar diagnostic #200 each 09/14/19 03/02/20 Rx mupirocin 2 % topical ointment See Rx Instructions .ROUTE 10/14/19 03/07/20 Rx .COMPLEX #22 gram enalapril maleate 20 mg tablet 20 mg PO DAILY #90 tab 11/11/19 03/07/20 Rx pioglitazone 30 mg tablet 30 mg PO DAILY #30 tab 11/17/19 03/07/20 Rx rosuvastatin 20 mg tablet 20 mg PO DAILY #30 tab 11/17/19 03/07/20 Rx insulin glargine 100 unit/mL See Rx Instructions .ROUTE 02/05/20 03/07/20 Rx subcutaneous solution .COMPLEX #10 ml rosuvastatin 40 mg tablet 40 mg PO DAILY #90 tab 03/01/20 03/07/20 Rx omeprazole 20 mg PO BID #60 cap 03/07/20 Rx Allergies Allergy/AdvReac Type Severity Reaction Status Date / Time hops [HOPS] Allergy Mild gi upset Verified 03/07/20 10:02 grapes Allergy Mild gi upset Uncoded 03/07/20 10:02 Medical History - Medical, Surgical, Family History Medical History: Medical History (Last Updated 03/21/20 @ 12:37 by Katherin Chisholm MD) Colon polyps Diabetes mellitus Essential hypertension Onset Date: 01/23/17 Measles Mixed hyperlipidemia Mumps Sleep apnea Tinnitus War injury due to shrapnel Surgical History: Surgical History (Last Updated 03/21/20 @ 12:37 by Katherin Chisholm MD) Anesthesia H/O hernia repair Status post colonoscopy Family History: Family History (Last Updated 03/21/20 @ 12:38 by Katherin Chisholm MD) Grandmother Loud snoring Father Loud snoring Colon cancer Heart disease Mother Anxiety Dementia Hypertension - Social History Smoking Status: Former smoker (stopped for 52 years.) Substance Use Type: does not use Alcohol Intake: current (once a while) Review of Systems - Patient Self-Reported Symptoms SR Constitution: Weight loss/gain, Fatigue/Malaise All systems PM: reviewed and no additional remarkable complaints except as stated Exam Vital signs: Last Vital Signs Temp 98.4 F 03/21/20 12:19 Pulse 113 H 03/21/20 12:19 Resp 16 03/21/20 12:19 BP 156/97 H 03/21/20 12:19 Pulse Ox 95 03/21/20 12:19 - Constitutional positive no acute distress, positive obese, positive chronically ill appearing - Routine HEENT Exam Head: Present: normocephalic, atraumatic Eye: Present: EOMI, PERRL, normal accommodation. Absent: conjunctival icterus, scleral injection - Routine Neck Exam Present: supple. Absent: normal carotid upstroke, lymphadenopathy - Routine Chest/Breast/Axilla Exam Chest wall exam standard: Absent: tenderness Axillae: Absent: lymphadenopathy - Routine Respiratory Exam Present: Clear to auscultation bilaterally. Absent: wheezes - Routine Cardiovascular Exam Present: RRR, S1, S2. Absent: murmur, gallop, rubs - Routine Abdominal Exam Present: soft, normoactive bowel sounds, Morgan's sign - Routine Extremities Exam Absent: edema - Routine Skin Exam Present: intact - Routine Neurological Exam Present: alert, oriented X3, CN II-XII intact. Absent: sensory deficit, motor deficit - Routine Psychiatric Exam Present: normal affect Results - Labs Laboratory Last Values WBC 11.7 X10^3/uL (4.5-11.0) H 03/21/20 13:20 RBC 5.60 X10^6/uL (4.5-5.9) 03/21/20 13:20 Hgb 15.2 g/dL (13.5-17.5) 03/21/20 13:20 Hct 45.5 % (41-53) 03/21/20 13:20 MCV 81.2 fL (80-100) 03/21/20 13:20 MCH 27.2 PG (26-34) 03/21/20 13:20 MCHC 33.5 % (30-36) 03/21/20 13:20 RDW 14.4 % (11.6-14.8) 03/21/20 13:20 Plt Count 257 X10^3/uL (150-400) 03/21/20 13:20 Neut % (Auto) Not Reportable 03/21/20 13:20 Lymph % (Auto) Not Reportable 03/21/20 13:20 [place] % (Auto) Not Reportable 03/21/20 13:20 Eos % (Auto) Not Reportable 03/21/20 13:20 Baso % (Auto) Not Reportable 03/21/20 13:20 Lymph # (Auto) Not Reportable 03/21/20 13:20 [place] # (Auto) Not Reportable 03/21/20 13:20 Baso # (Auto) Not Reportable 03/21/20 13:20 Total Counted 100 03/21/20 13:20 Seg Neutrophils % 69.0 % (38-70) 03/21/20 13:20 Band Neutrophils % 7.0 % (3-7) 03/21/20 13:20 Lymphocytes % (Manual) 8.0 % (25-45) L 03/21/20 13:20 Atypical Lymphs % 2.0 % (-0) H 03/21/20 13:20 Monocytes % (Manual) 10.0 % (2-11) 03/21/20 13:20 Eosinophils % (Manual) 1.0 % (2-4) L 03/21/20 13:20 Metamyelocytes % 1.0 % (-0) H 03/21/20 13:20 Myelocytes % 2.0 % (-0) H 03/21/20 13:20 Neutrophils # (Manual) 8892 /uL (9903-3575) H 03/21/20 13:20 Plt Morphology Comment 03/21/20 13:20 RBC Morphology Normal morphology 03/21/20 13:20 Sodium 128 mmol/L (137-145) L 03/21/20 13:20 Potassium 3.6 mmol/L (3.4-5.1) 03/21/20 13:20 Chloride 93 mmol/L (98-107) L 03/21/20 13:20 Carbon Dioxide 24 mmol/L (22-32) 03/21/20 13:20 BUN 21 mg/dL (9-20) H 03/21/20 13:20 Creatinine 0.68 mg/dL (0.66-1.25) 03/21/20 13:20 Estimated GFR > 60.0 mL/min (>60) 03/21/20 13:20 BUN/Creatinine Ratio 30.9 (6-22) H 03/21/20 13:20 Glucose 197 mg/dL (80-110) H 03/21/20 13:20 Calcium 8.4 mg/dL (8.4-10.2) 03/21/20 13:20 Total Bilirubin 2.2 mg/dL (0.2-1.3) H 03/21/20 13:20 AST 118 IU/L (17-59) H 03/21/20 13:20 ALT 126 IU/L (<50) H 03/21/20 13:20 Alkaline Phosphatase 1190 U/L (38-126) H 03/21/20 13:20 Total Protein 7.2 g/dL (6.3-8.2) 03/21/20 13:20 Albumin 3.6 g/dL (3.5-5.0) 03/21/20 13:20 Globulin 3.6 g/dL (1.7-4.1) 03/21/20 13:20 Albumin/Globulin Ratio 1.0 (1.0-2.8) 03/21/20 13:20 Assessment and Plan (1) Esophageal adenocarcinoma 75-year-old gentleman with newly diagnosed esophageal adenocarcinoma at the gastroesophageal junction. I talked with the patient that the very first step is to define the disease stage. It is important to know whether the disease is localized, locally advanced or has already metastasized. I would recommend that we obtain PET scan and CT chest abdomen pelvis for further evaluate. Clinically patient has left upper arm numbness, hoarseness of the voice, and midback pain. I am concerned that his disease may have already metastasized. If it is metastasized, I would recommend palliative chemotherapy. However if it is localized or locally advanced, I would recommend the patient be evaluated at [facility] for upper endoscopy with ultrasound study to evaluate the extent of the disease. Usually for locally advanced or early stage esophageal cancer, concurrent chemo-radiation therapy followed by surgery is recommended. Patient voiced understanding. Patient said that he is very weak most likely related to the recent difficulty swallowing and possibly dehydration. I would recommend that we proceed with normal saline 1000 cc today. As far as nutrition support is concerned, I will refer the patient to Dr. Hawthorne for consideration of feeding tube placement. Plan: CBC, CMP CT CAP w/contrast PET scan Surgical referral for feeding tube placement NS 1000 cc x 1 iv today RTC in 3 weeks.
[2020-03-21 12:19] VITALS: BP 156/97; PULSE 113; RESP 16; TEMP 36.9; O2SAT 95
[2020-03-21] MEDS: SODIUM CHLORIDE 0.9% 50 ML 1000 ML IV (13:29)
[2020-03-21 13:36] LABS: Add Manual Diff / Slide Review YES; Hematocrit 45.5 % (41-53); Hemoglobin 15.2 g/dL (13.5-17.5); Mean Corpuscular HGB Conc 33.5 % (30-36); Mean Corpuscular Hemoglobin 27.2 PG (26-34); Mean Corpuscular Volume 81.2 fL (80-100); Platelet Count 257 X10^3/uL (150-400); Red Cell Distribution Width 14.4 % (11.6-14.8); White Blood Cell Count 11.7 X10^3/uL (4.5-11.0)
[2020-03-21 13:57] LABS: Alanine Aminotransferase 126 IU/L (<50); Albumin 3.6 g/dL (3.5-5.0); Alkaline Phosphatase 1190 U/L (38-126); Aspartate Aminotransferase 118 IU/L (17-59); BUN Creatinine Ratio 30.9 (6-22); Bilirubin Total 2.2 mg/dL (0.2-1.3); Blood Urea Nitrogen 21 mg/dL (9-20); Calcium 8.4 mg/dL (8.4-10.2); Carbon Dioxide 24 mmol/L (22-32); Chloride 93 mmol/L (98-107); Estimated Glomerular Filt Rate > 60.0 mL/min (>60); Globulin 3.6 g/dL (1.7-4.1); Glucose 197 mg/dL (80-110); HEMOLYSIS < 15 (0-50); Potassium 3.6 mmol/L (3.4-5.1); Sodium 128 mmol/L (137-145); Total Protein 7.2 g/dL (6.3-8.2)
[2020-03-21 14:18] LABS: Neutrophils Absolute Manual 8892 /uL (3000-5900); RBC Morphology Normal Morphology; Total Cells Counted 100
--- NOTE | 2020-03-22 13:33 | ONC.MSW ---
Description: T/C re: Care Coordination Activity: Spoke with pt's , Tere, to introduce myself as the navigator/TRAIN OPERATIONS SUPERVISOR, discuss role of navigation, and the ongoing availability of assistance, support, and resource referrals as needed. Pt and moved out to [place] 3-years ago, sold their home and had planned on travelling around this area for their assisted. Unfortunately, that's when Covid-19 hit, and they have been limited to living locally in their motorhome. Tere expressed concerns about his disease progression, had many questions about hospice, and if [facility] She shared that pt seems to be steadily declining in overall disease progression, demonstrated by progressive weakness, fatigue, sleeping more during the day, and being unable to eat more than a few bites at a time without early satiety. Discussed esophogeal cancer and what to expect with continued progression, as well as what to expect with hospice services. Family's main goal is to keep [facility] at [facility] ([facility] and not in a facility. They also have a 35-year old disabled dtr who resides with them in the [facility], and is reportedly very close to pt. Tere expressed feeling worried about how this will effect her as he continues to decline. 's main concern is that pt will continue to waste away prior to having his feeding tube placed, which was just discussed yesterday with Dr. Chisholm. Pt is scheduled to have a PET on Mar.30, which is what Dr. Chisholm is planning to review in terms of what type of feeding tube pt will need. She's afraid that Dec. 2 is too long to wait, and wants to get the feeding tube placed rubi. TRAIN OPERATIONS SUPERVISOR assured her that her concerns will be discussed with Dr. Chisholm. TRAIN OPERATIONS SUPERVISOR also offered to help provide some Ensure Enlive samples should they need them, and that when they do decide to go to hospice, that TRAIN OPERATIONS SUPERVISOR can also help with that transition. Pt is already clear in his goals that he does not want chemotherapy, and that most likely he will only want the feeding tube and to be kept comfortable. Last item, she is requesting help with getting a walker. TRAIN OPERATIONS SUPERVISOR will call [employer] and find out how to access one. No further needs indicated at this time.
[2020-03-23] MEDS: SODIUM CHLORIDE 0.9% 1,000 ML 1000 ML IV (15:16)
--- NOTE | 2020-03-23 15:36 | PC.NURSE ---
PT REQUEST FOR SEDATION FOR PET SCAN ON 03/30. HE IS NPO 4 HOURS BEFOREHAND. PLEASE WRITE PRESCRIPTION.
[2020-03-25 11:27] VITALS: BP 121/75; PULSE 112; RESP 16; TEMP 36.2; O2SAT 93
--- NOTE | 2020-03-25 13:33 | PC.NURSE ---
infusion, Pt reports poor hydration, required multiple attempts to get PIV for IV Fluids, 22 g left in L hand for IVF therapy 03/26. Wrapped with coban and protected. Saline locked.
[2020-03-26] MEDS: SODIUM CHLORIDE 0.9% 1,000 ML 900 ML IV (11:13)
[2020-03-26 11:16] VITALS: BP 130/82; PULSE 118; RESP 20; TEMP 36.2; O2SAT 90
[2020-03-27 11:03] VITALS: BP 147/97; PULSE 115; RESP 16; TEMP 35.8; O2SAT 95
[2020-03-27] MEDS: SODIUM CHLORIDE 0.9% 1,000 ML 990 ML IV (11:10)
--- NOTE | 2020-03-28 11:39 | ONC.SCHED ---
Patient is scheduled for 03/30/[address] Hawthorne for an office visit regarding feeding tube per Grazyna. She will call the patient, says they may be able to place the tube this day but she wasn't sure as Dr. Hawthorne is not in office today. I will also give the patient the schedule for the apt. with [facility].
[2020-03-28 11:41] VITALS: BP 144/83; PULSE 110; RESP 28; TEMP 36.6; O2SAT 93
[2020-03-28 11:43] LABS: Hematocrit 44.4 % (41-53); Hemoglobin 14.9 g/dL (13.5-17.5); Mean Corpuscular HGB Conc 33.5 % (30-36); Mean Corpuscular Hemoglobin 27.5 PG (26-34); Mean Corpuscular Volume 81.9 fL (80-100); Platelet Count 237 X10^3/uL (150-400); Red Blood Cell Count 5.42 X10^6/uL (4.5-5.9); White Blood Cell Count 12.1 X10^3/uL (4.5-11.0)
[2020-03-28 11:44] LABS: Add Manual Diff / Slide Review YES
[2020-03-28 11:58] LABS: Alanine Aminotransferase 89 IU/L (<50); Albumin 3.2 g/dL (3.5-5.0); Albumin Globulin Ratio 0.9 (1.0-2.8); Aspartate Aminotransferase 80 IU/L (17-59); BUN Creatinine Ratio 30.2 (6-22); Bilirubin Total 4.1 mg/dL (0.2-1.3); Blood Urea Nitrogen 19 mg/dL (9-20); Calcium 8.4 mg/dL (8.4-10.2); Carbon Dioxide 22 mmol/L (22-32); Chloride 98 mmol/L (98-107); Estimated Glomerular Filt Rate > 60.0 mL/min (>60); Globulin 3.6 g/dL (1.7-4.1); Glucose 199 mg/dL (80-110); HEMOLYSIS < 15 (0-50); Potassium 3.8 mmol/L (3.4-5.1); Sodium 127 mmol/L (137-145); Total Protein 6.8 g/dL (6.3-8.2)
[2020-03-28 12:04] LABS: Alkaline Phosphatase 1480 U/L (38-126)
[2020-03-28 12:13] LABS: Neutrophils Absolute Manual 9801 /uL (3000-5900); Total Cells Counted 100
[2020-03-28 12:14] LABS: RBC Morphology Normal Morphology
--- NOTE | 2020-03-28 12:39 | PC.NURSE ---
Report made to Dr. Chisholm re patient condition. Patient accompanied to ER per his order and report given to ER nurse. JUDAH Graham informed that patient and would like to speak with her about Hospice.
== END ==
PROVIDERS: Family Provider Family Medicine; PCP Family Medicine; Referring Provider Surgery; Visit Provider Internal Medicine Hematology & Oncology
DX: C15.9 Malignant neoplasm of esophagus, unspecified (principal)
CPT/HCPCS: 36415; 80053; 85007; 85025; 96360; 96361; 96365; 96366; 99204; 99214

== ENCOUNTER 2020-03-28 12:27 | Emergency (ER) | payer OTHER, SELFPAY ==
[2020-03-28] VITALS (8 sets, daily range): BP systolic 144–177; BP diastolic 91–105; PULSE 112–117; RESP 18–35; TEMP 36.4; O2SAT 93–95
--- NOTE | 2020-03-28 13:05 | ED_ITS ---
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 He has had difficulty small mowing and has been receiving daily IV fluid infusions at the infusion clinic. He was sent the ER today from the infusion clinic for increased weight gain and possible increased abdominal distention thought to have ascites and paracentesis. Patient is being evaluated for a PEG tube but that has not yet happened. states that he has progressively gotten weaker quite quickly. He only eats a bite or 2 at a time which is why the getting IV infusions to keep him hydrated. He has become more jaundiced over the past few days. They are considering hospice at home. He does have some increasing shortness of breath as well Related Data Home Medications Medication Instructions Recorded Confirmed aspirin 81 mg PO QDAY #0 01/23/17 03/07/20 timolol See Rx Instructions .ROUTE .COMPLEX 05/20/19 03/07/20 Previous Rx's Medication Instructions Recorded Glucose: Home Monitor ea NA Q DAY #1 01/28/17 triamcinolone acetonide 0.1 % 1 applictn TOP BID #15 gram 02/17/19 topical cream Syringes: 1cc Insulin Syringes #100 each 02/25/19 with Almo amlodipine 5 mg tablet 5 mg PO DAILY #90 tab 05/12/19 ciclopirox 0.77 % topical cream 1 applictn TOP BID 28 Days #30 gram 05/20/19 lancets 33 gauge See Rx Instructions .ROUTE 06/26/19 .COMPLEX #100 each blood sugar diagnostic #200 each 09/14/19 mupirocin 2 % topical ointment See Rx Instructions .ROUTE 10/14/19 .COMPLEX #22 gram enalapril maleate 20 mg tablet 20 mg PO DAILY #90 tab 11/11/19 pioglitazone 30 mg tablet 30 mg PO DAILY #30 tab 11/17/19 rosuvastatin 20 mg tablet 20 mg PO DAILY #30 tab 11/17/19 insulin glargine 100 unit/mL See Rx Instructions .ROUTE 02/05/20 subcutaneous solution .COMPLEX #10 ml rosuvastatin 40 mg tablet 40 mg PO DAILY #90 tab 03/01/20 omeprazole 20 mg PO BID #60 cap 03/07/20 hydrocodone-acetaminophen 1 tab PO Q6H PRN #10 tab 03/28/20 lorazepam [Ativan] 0.5 mg PO DAILY PRN #2 tab 03/28/20 Allergies Allergy/AdvReac Type Severity Reaction Status Date / Time hops [HOPS] Allergy Mild gi upset Verified 03/07/20 10:02 grapes Allergy Mild gi upset Uncoded 03/07/20 10:02 Review of Systems Review of Systems ROS Unobtainable: All systems reviewed & are unremarkable except as noted in HPI and below Constitutional Constitutional: Reports fatigue, Reports poor appetite, Reports weakness and Reports weight gain Eyes Eyes: Denies change in vision, Denies eye discharge, Denies irritation and Denies loss of vision Cardiovascular Cardiovascular: Denies chest pain, Denies pedal edema and Reports dyspnea Respiratory Respiratory: Denies chest congestion, Denies cough and Reports dyspnea Gastrointestinal Gastrointestinal: Denies abdominal pain, Reports bloating, Denies change in bowel habits, Denies diarrhea, Denies nausea and Denies vomiting Musculoskeletal Musculoskeletal: Denies back pain and Denies myalgias Integumentary/Breasts Skin/Breast: Denies pruritus, Denies erythema, Denies rash and Denies wounds Neurologic Neurologic: Denies loss of vision and Reports weakness Endocrine Endocrine: Reports fatigue Patient History Medical History Colon polyps Diabetes mellitus Essential hypertension (01/23/17) Measles Mixed hyperlipidemia Mumps Sleep apnea Tinnitus War injury due to shrapnel Surgical History Anesthesia H/O hernia repair Status post colonoscopy Family History Grandmother Loud snoring Father Loud snoring Colon cancer Heart disease Mother Anxiety Dementia Hypertension Social History marital status: household members: spouse pets and animals: Yes education level: college leisure activities: reading seatbelt use: always helmet use: Yes water heater temp set < 120 deg: Yes working smoke detector in home: Yes fire extinguisher in home: Yes carbon monox detector in home: Yes firearms in home: No Smoking Status: Former smoker alcohol intake: current (once a while) substance use type: does not use during the past year weight has: remained stable well-balanced diet: daily or most days daily servings fruits/ve-4 caffeine: Yes eating out: 1-3 times/week Type(s) of exercise: walking and bicycling frequency: 3-4 times per week duration: 30-45 minutes/day Smoking Status: Former smoker alcohol intake frequency: a few times a month Substance Use Type: does not use Exam Initial Vital Signs Initial Vital Signs: Vital Signs Temperature 97.5 F L 03/28/20 12:36 Pulse Rate 114 H 03/28/20 12:36 Respiratory Rate 18 03/28/20 12:36 Blood Pressure 174/105 H 03/28/20 12:36 Pulse Oximetry 95 03/28/20 12:36 GENERAL: Jaundiced week male and in no acute distress. HEENT: Head atraumatic,EOMI, pupils reactive, face symmetric, moist mucous membranes CARDIOVASCULAR: Regular rate and rhythm without murmurs, rubs or gallops. RESPIRATORY: Breath sounds equal bilaterally, no wheezes rales or rhonchi. ABDOMEN: Soft, distended nontender no guarding rebound no positive fluid wave EXTREMITIES: Normal range of motion, no clubbing or edema. Neurovascularly intact NEUROLOGICAL: Alert and oriented x4.Normal gait and speech. SKIN: Warm, dry, no laceration, no petechiae, no rashes or lesions. Course Orders Ordered: ED Orders 03/28/20 13:28 CT chest abd pel w con Stat US abdomen limited Stat Vital Signs Vital signs: Vital Signs - 8 hr 03/28/20 12:36 03/28/20 12:38 03/28/20 13:00 Temperature 97.5 F L Pulse Rate 114 H 115 H 112 H Respiratory Rate 18 32 H 31 H Blood Pressure 174/105 H 157/92 H Pulse Oximetry 95 95 93 03/28/20 13:30 03/28/20 14:00 03/28/20 14:15 Temperature Pulse Rate 114 H 117 H 115 H Respiratory Rate 34 H 33 H 35 H Blood Pressure 144/91 H 160/95 H 177/96 H Pulse Oximetry 93 93 94 03/28/20 14:30 03/28/20 15:00 Temperature Pulse Rate 113 H 116 H Respiratory Rate 32 H 35 H Blood Pressure 167/96 H 169/99 H Pulse Oximetry 93 93 MDM - Back Pain/Injury Imaging Data CT scan - abdomen/pelvis: Radiologist's Impression: PROCEDURE: CT CHEST ABD PEL W CON INDICATIONS: esophageal cancer TECHNIQUE: After the administration of intravenous contrast, 5 mm thick sections acquired from the lung apices to the symphysis. 2.5 mm thick coronal and sagittal reformats were acquired. Additional 7 mm thick coronal maximum intensity projection (MIP) reformats acquired through the lungs. Optional 10-minute delayed imaging may be performed from the kidneys to the bladder. For radiation dose reduction, the following was used: automated exposure control, adjustment of mA and/or kV according to patient size. COMPARISON: None. FINDINGS: Image quality: Excellent. CHEST: Lungs: No pneumothorax. Bilateral moderate pleural effusions with adjacent atelectasis. Scattered subcentimeter pulmonary nodules are present in both lungs, for example within the right middle lobe measuring 2-3 mm for example image 167/3. Additional 4 mm nodule seen in the left apex on image 74/3. Airway thickening in keeping with nonspecific bronchitis and/or reactive airways disease. Calcified pleural plaques are present raising the possibility of asbestos related pleural disease. Mediastinum: Heart size is normal. Coronary artery calcifications are present. No pericardial effusion. Thoracic aorta and pulmonary arteries demonstrate normal size and enhancement. No mediastinal or hilar adenopathy. Circumferential esophageal mural thickening in keeping with the patient's given clinical history of esophageal cancer. There are shotty para esophageal lymph nodes, subcentimeter in size although could represent early metastatic involvement. Chest wall: No rib fractures. No subcutaneous emphysema. No axillary or supraclavicular adenopathy. Thyroid gland is heterogeneous with dominant nodule seen in the right lobe. This could be better assessed with dedicated ultrasound as clinically warranted. . ABDOMEN: Multiple hepatic cysts are present however some of these are technically too small to characterize and cannot entirely exclude early metastatic disease therefore recommend close continued attention on subsequent studies. The gallbladder is grossly unremarkable. Biliary system is non-dilated. Pancreas enhances normally, without transection. Spleen is normal in size and enhancement, without lacerations. No adrenal hematomas. Prominent right pelvocaliectasis, with abrupt transition to upper ureter suggestive of chronic right UPJ. No left- sided hydronephrosis identified. Subcentimeter renal foci, statistically cysts, although technically too small to characterize accurately and therefore nonspecific. Trace right-sided ascites. No free air identified. Colonic diverticulosis is seen without evidence of acute complication. Unenhanced bowel loops demonstrate normal wall thickness and caliber. Nodes and vessels: No retroperitoneal or mesenteric adenopathy. Aorta and inferior vena cava are normal in size and enhancement. Miscellaneous: No ventral hernias. PELVIS: Genitourinary: Bladder wall thickness is normal. Small fat containing right inguinal hernia. Bones: There are diffuse, innumerable sclerotic foci seen throughout the entire visualized skeleton, most likely representing osseous metastases. IMPRESSION: Distal esophageal mural thickening in keeping with the patient's given clinical history of esophageal carcinoma. Nearby subcentimeter periesophageal lymph nodes which warrant continued attention to exclude early metastatic involvement. Diffuse, innumerable sclerotic foci seen throughout the included skeletal structures in keeping with osseous metastases. Moderate bilateral pleural effusions with adjacent atelectasis. Scattered bilateral subcentimeter pulmonary nodules which are technically indeterminate although recommend continued close attention on subsequent studies to exclude early metastatic disease. Multiple appendix cysts although some of these are technically too small to characterize and recommend continued attention on subsequent studies. Trace right-sided ascites Presumed right ureteropelvic junction stenosis. Additional chronic and incidental findings as above. Dictated by: Rehan Franco M.D. on 03/28/2020 at 14:26 US - abdomen: Radiologist's Impression: PROCEDURE: US ABDOMEN LIMITED INDICATIONS: QUESTION ASCITES TECHNIQUE: Real-time focused scanning was performed of the abdomen, with image documentation. COMPARISON: None. FINDINGS: Scanning of all 4 quadrants of the abdomen and the midline was performed. A small amount of free fluid is seen in the right upper quadrant and there is a right pleural effusion. IMPRESSION: Small amount of ascites in the right upper quadrant. A right pleural effusion is present. Dictated by: Estuardo Almanzar M.D. on 03/28/2020 at 13:34 Approved by: Estuardo Almanzar M.D. on 03/28/2020 at 13:36 MDM Narrative Medical decision making narrative: Social work in to see and evaluate patient. Both patient and his like to go home with hospice. Social Work has made a referral. At this time there is no ascites present no need for thoracentesis. He does have some pleural effusions but he is not eating or drinking and only receiving 1 L of IV fluid at this time I do not think a diarrhetic will help him. He is not in any respiratory distress or having low oxygen. At this time his pain is controlled and he is not currently having any. Discharge Plan Departure Patient Disposition: Home Clinical Impression: Esophageal cancer Qualifiers: Malignant neoplasm of esophagus location: unspecified location Qualified Code(s): C15.9 - Malignant neoplasm of esophagus, unspecified Instructions: DI for Esophageal Cancer Activity Restrictions/Additional Instructions: *You have been diagnosed with esophageal cancer *What to do: At this time referral for hospice of [facility] has been made *Continue to take medications as directed [place] 1 tablet every 6 hours if needed for severe pain *Follow up with your primary care provider in 2-3 days *Return to ER if you should have increasing shortness of breath, increasing pain or any new, worsening or concerning symptoms CONTROLLED SUBSTANCE DISCHARGE (Narcotoic/benzodiazepine/Flexeril/Phenergan) 1. You have been prescribed narcotic medications, it does have acetamin ophen/Tylenol/paracetamol in it so do not take extra Tylenol or Tylenol containing products TRAMADOL DOES NOT CONTAIN TYLENOL 2. Please understand that we cannot provide further refills of narcotics, benzodiazepines or controlled substances through the ED and her pain management will need to be through your provider. 3. While on these medications you cannot drive or operate heavy machinery. 4. You cannot sign legal documents or perform any duties such as this. 5. As long as you're taking opiate pain medications he should also be taking a stool softener such as Colace, Dulcolax, MiraLAX or prune juice, to help avoid constipation. Prescriptions: New hydrocodone-acetaminophen 5-325 mg tablet 1 tab PO Q6H PRN (Reason: pain) Qty: 10 RF: 0 No Action triamcinolone acetonide 0.1 % cream 1 applictn TOP BID Qty: 15 RF: 2 timolol See Rx Instructions .ROUTE .COMPLEX RF: 0 ciclopirox 0.77 % cream 1 applictn TOP BID 28 Days Qty: 30 RF: 2 aspirin 81 MG tablet,chewable 81 mg PO QDAY Qty: 0 RF: 0 Glucose: Home Monitor NA Q DAY Qty: 1 RF: 0 (DME) Syringes: 1cc Insulin Syringes with Almo 0 .Route .MEDSUPPLY Qty: 100 RF: 3 amlodipine 5 mg tablet 5 mg PO DAILY Qty: 90 RF: 2 lancets [OneTouch Delica Lancets] 33 gauge misc See Rx Instructions .ROUTE .COMPLEX Qty: 100 RF: 3 (DME) OneTouch Ultra Blue Test Strip Strip See Dose Instructions .ROUTE .MEDSUPPLY Qty: 200 RF: 12 mupirocin 2 % ointment See Rx Instructions .ROUTE .COMPLEX Qty: 22 RF: 0 enalapril maleate 20 mg tablet 20 mg PO DAILY Qty: 90 RF: 3 pioglitazone 30 mg tablet 30 mg PO DAILY Qty: 30 RF: 11 rosuvastatin 20 mg tablet 20 mg PO DAILY Qty: 30 RF: 11 insulin glargine [Lantus U-100 Insulin] 100 unit/mL solution See Rx Instructions .ROUTE .COMPLEX Qty: 10 RF: 1 rosuvastatin 40 mg tablet 40 mg PO DAILY Qty: 90 RF: 3 omeprazole 20 mg capsule,delayed release(DR/EC) 20 mg PO BID Qty: 60 RF: 0 lorazepam [Ativan] 0.5 mg Tablet 0.5 mg PO DAILY PRN (Reason: anxiety before PET scan) Qty: 2 RF: 0 Referrals: Allie Mckeon MD [Primary Care Provider] -
--- NOTE | 2020-03-28 13:28 | DI.CT.S_ITS ---
PROCEDURE: CT CHEST ABD PEL W CON INDICATIONS: esophageal cancer TECHNIQUE: After the administration of intravenous contrast, 5 mm thick sections acquired from the lung apices to the symphysis. 2.5 mm thick coronal and sagittal reformats were acquired. Additional 7 mm thick coronal maximum intensity projection (MIP) reformats acquired through the lungs. Optional 10-minute delayed imaging may be performed from the kidneys to the bladder. For radiation dose reduction, the following was used: automated exposure control, adjustment of mA and/or kV according to patient size. COMPARISON: None. FINDINGS: Image quality: Excellent. CHEST: Lungs: No pneumothorax. Bilateral moderate pleural effusions with adjacent atelectasis. Scattered subcentimeter pulmonary nodules are present in both lungs, for example within the right middle lobe measuring 2-3 mm for example image 167/3. Additional 4 mm nodule seen in the left apex on image 74/3. Airway thickening in keeping with nonspecific bronchitis and/or reactive airways disease. Calcified pleural plaques are present raising the possibility of asbestos related pleural disease. Mediastinum: Heart size is normal. Coronary artery calcifications are present. No pericardial effusion. Thoracic aorta and pulmonary arteries demonstrate normal size and enhancement. No mediastinal or hilar adenopathy. Circumferential esophageal mural thickening in keeping with the patient's given clinical history of esophageal cancer. There are shotty para esophageal lymph nodes, subcentimeter in size although could represent early metastatic involvement. Chest wall: No rib fractures. No subcutaneous emphysema. No axillary or supraclavicular adenopathy. Thyroid gland is heterogeneous with dominant nodule seen in the right lobe. This could be better assessed with dedicated ultrasound as clinically warranted. . ABDOMEN: Multiple hepatic cysts are present however some of these are technically too small to characterize and cannot entirely exclude early metastatic disease therefore recommend close continued attention on subsequent studies. The gallbladder is grossly unremarkable. Biliary system is non-dilated. Pancreas enhances normally, without transection. Spleen is normal in size and enhancement, without lacerations. No adrenal hematomas. Prominent right pelvocaliectasis, with abrupt transition to upper ureter suggestive of chronic right UPJ. No left-sided hydronephrosis identified. Subcentimeter renal foci, statistically cysts, although technically too small to characterize accurately and therefore nonspecific. Trace right-sided ascites. No free air identified. Colonic diverticulosis is seen without evidence of acute complication. Unenhanced bowel loops demonstrate normal wall thickness and caliber. Nodes and vessels: No retroperitoneal or mesenteric adenopathy. Aorta and inferior vena cava are normal in size and enhancement. Miscellaneous: No ventral hernias. PELVIS: Genitourinary: Bladder wall thickness is normal. Small fat containing right inguinal hernia. Bones: There are diffuse, innumerable sclerotic foci seen throughout the entire visualized skeleton, most likely representing osseous metastases. IMPRESSION: Distal esophageal mural thickening in keeping with the patient's given clinical history of esophageal carcinoma. Nearby subcentimeter periesophageal lymph nodes which warrant continued attention to exclude early metastatic involvement. Diffuse, innumerable sclerotic foci seen throughout the included skeletal structures in keeping with osseous metastases. Moderate bilateral pleural effusions with adjacent atelectasis. Scattered bilateral subcentimeter pulmonary nodules which are technically indeterminate although recommend continued close attention on subsequent studies to exclude early metastatic disease. Multiple appendix cysts although some of these are technically too small to characterize and recommend continued attention on subsequent studies. Trace right-sided ascites Presumed right ureteropelvic junction stenosis. Additional chronic and incidental findings as above. Dictated by: Rehan Franco M.D. on 03/28/2020 at 14:26 Approved by: Rehan Franco M.D. on 03/28/2020 at 14:40
--- NOTE | 2020-03-28 13:28 | DI.US.S_ITS ---
PROCEDURE: US ABDOMEN LIMITED INDICATIONS: QUESTION ASCITES TECHNIQUE: Real-time focused scanning was performed of the abdomen, with image documentation. COMPARISON: None. FINDINGS: Scanning of all 4 quadrants of the abdomen and the midline was performed. A small amount of free fluid is seen in the right upper quadrant and there is a right pleural effusion. IMPRESSION: Small amount of ascites in the right upper quadrant. A right pleural effusion is present. Dictated by: Estuardo Almanzar M.D. on 03/28/2020 at 13:34 Approved by: Estuardo Almanzar M.D. on 03/28/2020 at 13:36
--- NOTE | 2020-03-28 14:23 | ONC.MSW ---
Description: Hospice Referral/Goals Conversation Activity: [employer] HELPER met with pt/spouse in the ER after they were sent by our clinic ONC licensing worker. Pt's called this morning concerned due to pt's continued, rapidly declining condition. He is reported to have minimal PO intake, extreme fatigue/weakness, dark coffee colored urine, and is having worsening pain. states he is exhaused from also being up so much trying to breathe better in the nighttime. He was going to get fluids, but triage sent him to ER for further workup. This [employer] HELPER has been having conversations with pt's over the last week in preparing for managing his increasing care needs, understanding what to expect from hospice services, and what their goals were for continued care. She states that he had planned to forego any chemotherapy treatment, and was in the midst of talks between the surgeon and Dr. Chisholm with discussing a feeding tube placement. Pt and now state that they just want to go home, and are choosing to opt for a hospice info visit at this time to further understand their options. Pt primarily wants to be kept comfortable, and is wanting to also have more help available for his and adult disabled dtr, all of whom live in a motorhome right now over at the [facility] on the [facility]. [employer] HAND HELPER faxed clinicals to [facility], per request of family. PIER HAND HELPER assured family that we will continue to assist them throughout this transition, and encouraged to call this PIER HAND HELPER for continued planning and support needs.
--- NOTE | 2020-03-28 15:31 | PC.NURSE ---
abd is firm and distended.
== END 2020-03-28 15:56 | disposition home or self-care (01) ==
PROVIDERS: Emergency Provider Emergency Medicine; Family Provider Family Medicine; PCP Family Medicine
DX: C15.9 Malignant neoplasm of esophagus, unspecified (principal); R06.02 Shortness of breath; R63.5 Abnormal weight gain; J90 Pleural effusion, not elsewhere classified; R18.8 Other ascites
CPT/HCPCS: 36415; 71260; 74177; 76705; 80053; 85007; 85025; 99281; Q9967